=== PATIENT | male | born 1950 | race Caucasian/White ===

== ENCOUNTER 2016-03-18 10:45 | Observation (INO) | payer OTHER ==
--- NOTE | 2016-03-18 11:01 | CPEKG ---
Heart Rate: 150 RR Interval: 400 QRSD Interval: 120 QT Interval: 308 QTC Interval: 487 P [place]: 0 QRS [place]: -107 T Wave [place]: -48 EKG Severity - ABNORMAL ECG - EKG Impression: RBBB AND LPFB EKG Impression: atrial flutter 2-1 block Electronically Signed By: Adán Montiel 18-Mar-2016 11:13:35
[2016-03-18] MEDS ORDERED: DILTIAZEM 25 MG/5 ML VIAL IVP ONE ×3 (11:22→11:49)
--- NOTE | 2016-03-18 11:25 | EDPHY ---
H & P Stated Complaint: irregular hr/sob fatigue Time Seen by Provider: 03/18/16 11:08 HPI/ROS: CHIEF COMPLAINT: Lightheadedness HISTORY OF PRESENT ILLNESS: Patient is a 65-year-old man with a history of atrial fibrillation/flutter status post ablation in 2008 reports to the emergency department complaining of lightheadedness and easy fatigability that began yesterday afternoon. He has not had any recent fevers or illnesses. No nausea vomiting. No chest pain. He became easily winded while walking the dog but otherwise denies shortness of breath. His heart rate is 150 consistently. He does notice mild palpitations. REVIEW OF SYSTEMS: Constitutional: denies: chills, fever, recent illness, recent injury EENTM: denies: blurred vision, double vision, nose congestion Respiratory: See HPI Cardiac: See HPI Gastrointestinal/Abdominal: denies: abdominal pain, diarrhea, nausea, vomiting, blood streaked stools Genitourinary: denies: dysuria, frequency, hematuria, pain Musculoskeletal: denies: joint pain, muscle pain Skin: denies: lesions, rash, jaundice, bruising Neurological: denies: headache, numbness, paresthesia, tingling, dizziness, weakness Hematologic/Lymphatic: denies: blood clots, easy bleeding, easy bruising Immunologic/allergic: denies: HIV/AIDS, transplant EXAM: GENERAL: Well-appearing, well-nourished and in no acute distress. HEAD: Atraumatic, normocephalic. EYES: Pupils equal round and reactive to light, extraocular movements intact, sclera anicteric, conjunctiva are normal. ENT: TMs normal, nares patent, oropharynx clear without exudates. Moist mucous membranes. NECK: Normal range of motion, supple without lymphadenopathy or JVD. LUNGS: Breath sounds clear to auscultation bilaterally and equal. No wheezes rales or rhonchi. HEART: Tachycardia very regular. ABDOMEN: Soft, nontender, normoactive bowel sounds. No guarding, no rebound. No masses appreciated. BACK: No CVA tenderness, no spinal tenderness, step-offs or deformities EXTREMITIES: Normal range of motion, no pitting or edema. No clubbing or cyanosis. NEUROLOGICAL: Cranial nerves II through XII grossly intact. Normal speech, normal gait. 5/5 strength, normal movement in all extremities, normal sensation PSYCH: Normal mood, normal affect. SKIN: Warm, dry, normal turgor, no visible rashes or lesions. Source: Patient Exam Limitations: No limitations - Personal History Current Tetanus/Diphtheria Vaccine: Yes - Medical/Surgical History Hx Asthma: No Hx Chronic Respiratory Disease: No Hx Diabetes: No Hx Cardiac Disease: Yes Hx Renal Disease: No Hx Cirrhosis: No Hx Alcoholism: No Hx HIV/AIDS: No Hx Splenectomy or Spleen Trauma: No Other PMH: Afib-ablation, GERD - Family History Significant Family History: No pertinent family hx - Social History Smoking Status: Former smoker Alcohol Use: Sober Drug Use: None Constitutional: Initial Vital Signs Temperature (C) 36.5 C 03/18/16 10:50 Heart Rate 156 H 03/18/16 10:50 Respiratory Rate 22 H 03/18/16 10:50 Blood Pressure 94/84 H 03/18/16 10:50 O2 Sat (%) 96 03/18/16 10:50 O2 Delivery Mode Room Air Allergies/Adverse Reactions: tetanus and diphtheria toxoids [tetanus & diphtheria toxoids] Allergy (Verified 03/18/16 10:49) Home Medications: Medication Instructions Recorded Atorvastatin Calcium [Lipitor 20 20 mg PO DAILY 12/18/14 mg (*)] Esomeprazole Mag Trihydrate 40 mg PO DAILY 12/18/14 [Nexium] Multivitamins [Multivitamin (*)] 1 tab PO DAILY 12/18/14 [place]-3 Fatty Acids [Fish Oil 1000 1,000 mg PO DAILY 12/18/14 mg (*)] Aspirin EC [Aspirin EC 81 mg (*)] 81 mg PO DAILY 01/06/15 Ibuprofen [Motrin (*)] 200 mg PO DAILY PRN 01/06/15 Aspirin EC [Aspirin EC 325 mg (*)] 325 mg PO DAILY #0 tab 01/12/15 Medical Decision Making - Diagnostics EKG Interpretation: An EKG obtained and was read and documented in trace view. Please see trace view for full reading and report. Atrial flutter with a 2-1 block, ED Course/Re-evaluation: After 20 mg of diltiazem IV the patient is still in atrial flutter/fibrillation but at a rate of 80. I will treat him with an oral dose. 1:20 p.m. the patient's heart rate is return to 150. He is a troponin bump. The oral diltiazem does not seem to be working. Will admit him to the hospital service and consult Cardiology. He is not currently on any anticoagulation medication or beta-blockers or calcium channel blockers. 1:30 p.m. I discussed the case with Dr. Isauro Tan who requests admit to the medical service. 1:33 p.m. I discussed the case with Pratima who will admit to Dr. Ernandez. Differential Diagnosis: Partial list of the Differential diagnosis considered include but were not limited to; atrial flutter, atrial fibrillation, SVT, acute coronary disease and although unlikely based on the history and physical exam, I also considered dehydration, electrolyte abnormality, PE. - Data Points Laboratory Results: Laboratory Results 03/18/16 11:05 03/18/16 11:05 03/18/16 11:05 WBC 14.24 H 10^3/uL (3.80-9.50) RBC 4.94 10^6/uL (4.40-6.38) Hgb 16.0 g/dL (13.7-17.5) Hct 45.9 % (40.0-51.0) MCV 92.9 fL (81.5-99.8) MCH 32.4 pg (27.9-34.1) MCHC 34.9 g/dL (32.4-36.7) RDW 12.6 % (11.5-15.2) Plt Count 255 10^3/uL (150-400) MPV 10.8 fL (8.7-11.7) Neut % (Auto) 62.6 % (39.3-74.2) Lymph % (Auto) 25.1 % (15.0-45.0) [place] % (Auto) 8.3 % (4.5-13.0) Eos % (Auto) 2.8 % (0.6-7.6) Baso % (Auto) 0.6 % (0.3-1.7) Nucleat RBC Rel Count 0.0 % (0.0-0.2) Absolute Neuts (auto) 8.92 H 10^3/uL (1.70-6.50) Absolute Lymphs (auto) 3.58 H 10^3/uL (1.00-3.00) Absolute Monos (auto) 1.18 H 10^3/uL (0.30-0.80) Absolute Eos (auto) 0.40 10^3/uL (0.03-0.40) Absolute Basos (auto) 0.08 10^3/uL (0.02-0.10) Absolute Nucleated RBC 0.00 10^3/uL (0-0.01) Immature Gran % 0.6 % (0.0-1.1) Immature Gran # 0.08 10^3/uL (0.00-0.10) Sodium 141 mEq/L (134-144) Potassium 4.4 mEq/L (3.5-5.2) Chloride 107 mEq/L (97-110) Carbon Dioxide 22 mEq/l (22-31) Anion Gap 12 mEq/L (8-16) BUN 15 mg/dL (7-23) Creatinine 0.9 mg/dL (0.7-1.3) Estimated GFR > 60 Glucose 99 mg/dL (70-100) Calcium 9.2 mg/dL (8.5-10.4) Troponin I 0.065 H ng/mL (0-0.034) Medications Given: Discontinued Medications Diltiazem HCl (Cardizem 25 Mg/5 Ml Vial) 10 mg IVP EDNOW ONE Stop: 03/18/16 11:23 Last Admin: 03/18/16 11:41 Dose: 10 mg Diltiazem HCl (Cardizem 25 Mg/5 Ml Vial) 10 mg IVP EDNOW ONE Stop: 03/18/16 11:50 Last Admin: 03/18/16 11:55 Dose: 10 mg Diltiazem HCl (Cardizem Immediate Release) 60 mg PO EDNOW ONE Stop: 03/18/16 12:24 Last Admin: 03/18/16 12:50 Dose: 60 mg Diltiazem HCl 125 mg/ Dextrose 150 mls @ 0 mls/hr IV EDNOW ONE; As Directed PRN Reason: Protocol Stop: 03/18/16 13:51 Last Admin: 03/18/16 14:42 Dose: 150 mls Departure - Departure Disposition: [facility] Acute Clinical Impression: Atrial flutter Qualifiers: Atrial flutter type: typical Qualifier Code: (I48.3) Typical atrial flutter Condition: Fair
--- NOTE | 2016-03-18 11:46 | DX ---
Chest, PA and Lateral History: Dyspnea, exercise intolerance Comparison: April 11, 2009 Findings: Lung volumes are again moderately prominent and there is chronic or recurrent bronchial wal l thickening. Lungs are clear, without infiltrate or consolidation. Heart and pulmonary vascularity a re normal. There is no adenopathy or mass lesion. There is no pleural effusion or pneumothorax. There is chronic degenerative change in the midthoracic spine. There are interval, but solidly healed, rig ht anterior lateral 6, 7 and 8 rib fractures. EKG leads overlie the chest. Impression: COPD. Possible superimposed active airways disease.
[2016-03-18 11:59] LABS: % IMMATURE GRANULYOCYTES 0.6 % (0.0-1.1); ABSOLUTE IMMATURE GRANULOCYTES 0.08 10^3/uL (0.00-0.10); ADD DIFF? NO; ADD MORPH? NO; ADD SCAN? NO; ATYPICAL LYMPHOCYTE FLAG 10 (0-99); FRAGMENT RBC FLAG 0 (0-99); HEMATOCRIT 45.9 % (40.0-51.0); LEFT SHIFT FLG 0 (0-99); LIPEMIA HEMOLYSIS FLAG 90 (0-99); MEAN CELL HEMOGLOBIN 32.4 pg (27.9-34.1); MEAN CELL HEMOGLOBIN CONCENTR. 34.9 g/dL (32.4-36.7); MEAN CELL VOLUME 92.9 fL (81.5-99.8); MEAN PLATELET VOLUME 10.8 fL (8.7-11.7); PLATELET CLUMPS FLAG 20 (0-99); PLATELET COUNT 255 10^3/uL (150-400); RED BLOOD CELL COUNT 4.94 10^6/uL (4.40-6.38); RED CELL DISTRIBUTION WIDTH 12.6 % (11.5-15.2)
[2016-03-18 12:03] LABS: ANION GAP 12 mEq/L (8-16); CALCIUM 9.2 mg/dL (8.5-10.4); CARBON DIOXIDE 22 mEq/l (22-31); CHLORIDE 107 mEq/L (97-110); CREATININE 0.9 mg/dL (0.7-1.3); GLOMERULAR FILTRATION RATE > 60; GLUCOSE 99 mg/dL (70-100); POTASSIUM 4.4 mEq/L (3.5-5.2); SODIUM 141 mEq/L (134-144)
[2016-03-18] MEDS ORDERED: DILTIAZEM 60 MG TAB PO ONE (12:23)
[2016-03-18 12:26] LABS: TROPONIN I 0.065 ng/mL (0-0.034)
[2016-03-18] MEDS ORDERED: DILTIAZEM 125 MG in D5W 125 ML IV ONE (13:50)
[2016-03-18] MEDS ORDERED: ONDANSETRON DISINTEGRATING 4 MG TAB PO PRN (15:09)
[2016-03-18] MEDS ORDERED: ONDANSETRON 4 MG/2 ML VIAL IVP PRN (15:09)
[2016-03-18] MEDS ORDERED: ACETAMINOPHEN 325 MG TAB PO PRN (15:09)
[2016-03-18] MEDS ORDERED: DILTIAZEM 125 MG in D5W 125 ML IV SCH (16:00)
[2016-03-18] MEDS: DIGOXIN 500 MCG/2 ML AMP IVP SCH ×2 (16:41→23:23)
[2016-03-18] MEDS: ASPIRIN EC 81 MG TAB PO SCH (16:41)
--- NOTE | 2016-03-18 16:45 | GHP ---
[f rep st] HISTORY AND PHYSICAL DATE OF ADMISSION: 03/18/2016 DATE OF EVALUATION: 03/18/2016 CHIEF COMPLAINT: Dyspnea and lightheadedness. HISTORY OF PRESENT ILLNESS: The patient is a 65-year-old male with a past medical history of dyslipidemia and GERD, who presented to the Emergency Department due to fatigue and shortness of breath on exertion. He reports onset probably within the past couple of nights. He noted that minimal exertion would cause him to be winded. Typically, he is very active and this was a new symptom for him. He denies any presyncope, syncope, chest pains, PND , orthopnea, or peripheral edema. He has not noted any recent illness. He denies any diarrhea or dysuria or fever. REVIEW OF SYSTEMS: As per HPI. A complete 10-point review of systems was obtained and is negative except for what is dictated. PAST MEDICAL HISTORY: 1. 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 2. Dyslipidemia. 3. GERD. FAMILY HISTORY: Daughter had an [place] in her 20s. She is a patient of [facility]. OUTPATIENT MEDICATIONS: These include Lipitor 21 mg p.o. daily, esomeprazole, ibuprofen 600 mg p.o. daily, psyllium, and fish oil. ALLERGIES: Tetanus and diphtheria toxoids. SOCIAL HISTORY: The patient is . His Ashwini is present in the room. He reports at least 2 drinks nightly. He owns a bar. He is a former smoker. PHYSICAL EXAM: VITAL SIGNS: BP of 106/78, heart rate of 150, respirations 18, O2 saturation 95% on room air, temperature of 97.5 degrees Fahrenheit. GENERAL : He is a very pleasant male in no apparent distress. HEENT: Eyes are PERRL. HEART: Tachycardia with no rubs, gallops or murmurs auscultated. LUNGS: Clear to auscultation bilaterally. ABDOMEN: Soft. : No Chambers present. SKIN: Warm and dry. MUSCULOSKELETAL: No obvious joint deformity. PSYCH: Normal mood and affect for given situation. NEURO: Awake, alert, and oriented x3. LABORATORY DATA: CBC with WBC 14.24, hemoglobin 16, hematocrit 45.9, platelet count of 255. BMP with sodium 141, potassium 4.4, chloride 107, CO2 22, BUN 15, creatinine 0.9 , glucose of 99. Troponin 0.065. A 12-lead ECG personally interpreted demonstrates atrial flutter with a right bundle branch block and 2:1 conduction. Chest x-ray shows COPD. 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 He also has a family history of early coronary disease affecting his daughter. 1. Atrial flutter. He is in a 2:1 conduction. Our goal will be for rate control at this point. He has been started on a diltiazem drip. We will also add boluses of digoxin. If he does not convert, we will plan for a transesophageal echocardiography guided cardioversion. He will be kept NPO for that purpose in the morning. He carries a [id number] score of 0. We will keep him on aspirin currently. However, should he require direct current cardioversion, we will start him on full anticoagulation with Coumadin versus a novel agent. 2. Mildly elevated troponin. We will plan to obtain serial cardiac enzymes. This is likely due to strain from RVR. However, we will consider outpatient versus inpatient risk stratification. 3. Dyslipidemia. His atorvastatin will be continued. CODE STATUS: The patient is a full code. DISPOSITION: The patient will be admitted to observation status. Should he require further testing, or his troponin become significantly elevated, he will require inpatient status for further testing and treatment. /[id number]/MODL MTDD
[2016-03-18] MEDS ORDERED: OMEGA-3 FATTY ACIDS 1,000 MG CAP PO SCH (18:00)
[2016-03-19 05:33] LABS: % IMMATURE GRANULYOCYTES 0.6 % (0.0-1.1); ABSOLUTE IMMATURE GRANULOCYTES 0.06 10^3/uL (0.00-0.10); ADD DIFF? NO; ADD MORPH? NO; ADD SCAN? NO; ATYPICAL LYMPHOCYTE FLAG 10 (0-99); FRAGMENT RBC FLAG 0 (0-99); HEMATOCRIT 42.1 % (40.0-51.0); HEMOGLOBIN 14.3 g/dL (13.7-17.5); LEFT SHIFT FLG 0 (0-99); LIPEMIA HEMOLYSIS FLAG 90 (0-99); MEAN CELL HEMOGLOBIN 32.1 pg (27.9-34.1); MEAN CELL VOLUME 94.6 fL (81.5-99.8); MEAN PLATELET VOLUME 10.9 fL (8.7-11.7); PLATELET CLUMPS FLAG 0 (0-99); PLATELET COUNT 225 10^3/uL (150-400); RED BLOOD CELL COUNT 4.45 10^6/uL (4.40-6.38); RED CELL DISTRIBUTION WIDTH 12.7 % (11.5-15.2)
[2016-03-19 06:05] LABS: ANION GAP 11 mEq/L (8-16); CALCIUM 8.4 mg/dL (8.5-10.4); CARBON DIOXIDE 20 mEq/l (22-31); CHLORIDE 109 mEq/L (97-110); CREATININE 0.8 mg/dL (0.7-1.3); GLOMERULAR FILTRATION RATE > 60; GLUCOSE 104 mg/dL (70-100); POTASSIUM 4.3 mEq/L (3.5-5.2); SODIUM 140 mEq/L (134-144)
--- NOTE | 2016-03-19 08:34 | CPEKG ---
Heart Rate: 67 RR Interval: 896 P-R Interval: 192 QRSD Interval: 116 QT Interval: 456 QTC Interval: 482 P [place]: 59 QRS [place]: 0 T Wave [place]: 4 EKG Severity - ABNORMAL ECG - EKG Impression: SINUS RHYTHM EKG Impression: INCOMPLETE RIGHT BUNDLE BRANCH BLOCK Electronically Signed By: Lucia Amezcua 19-Mar-2016 16:49:38
[2016-03-19] MEDS ORDERED: ATORVASTATIN CALCIUM 20 MG TAB PO SCH (09:00)
[2016-03-19] MEDS ORDERED: MULTIVITAMINS 1 EACH TAB PO SCH (09:00)
[2016-03-19] MEDS ORDERED: ENOXAPARIN 40 MG/0.4 ML SYR SC SCH (09:00)
[2016-03-19] MEDS ORDERED: PSYLLIUM METAMUCIL 1 PKT PO SCH (09:00)
[2016-03-19] MEDS ORDERED: PANTOPRAZOLE SODIUM 40 MG TAB PO SCH (09:00)
[2016-03-19] MEDS ORDERED: PSYLLIUM HUSK PO SCH (09:00)
[2016-03-19] MEDS ORDERED: NON-FORMULARY NEW DRUG (Esomeprazole Mag Trihydrate [Nexium] 40 MG) PO SCH (09:00)
--- NOTE | 2016-03-19 10:07 | ECHO ---
[id number] [id number] + + [address] : : [place] [address] : : [phone] + + Adult Echocardiographic Report + ----+ :Name: JESSICA BLISS Nanda Date: 03/19/2016 08:01 AM : : Hospital Admission Number: [id number] Location: 218: :: 1950 Gender: Male Height: 73 in : :Age: 65 yrs Race: WH Weight: 225 lb : :Reason For Study: Atrial flutter : : BSA: 2.3 meters2 : + ----+ MMode/2D Measurements & Calculations IVSd: 0.73 cm LVIDd: 4.9 cm EDV(Teich): Ao root diam: LVPWd: 0.79 cm 114.7 ml 4.2 cm LA dimension: 3.8 cm LVLd ap4: 7.8 cm SV(MOD-sp4): EDV(MOD-sp4): 54.0 ml 77.0 ml LVLs ap4: 6.6 cm ESV(MOD-sp4): 23.0 ml EF(MOD-sp4): 70.1 % Normal Measurement Values: + + :LVIDd (3.5-5.7cm) IVSd (0.6-1.1cm) LVPWd (0.6-1.1cm) Aortic Root (2.0-3.7cm)Left Atrium (1.5-4.0cm): :LV Vol(d) (76-115ml) LV Vol(s) (29-48ml) Ejec Fraction (50-65%)PV Mynor (0.6- 1.2m/s) TV Mynor (0.4-1.0m/s) : :MV E Mynor (0.8-1.0m/s)MV A Mynor (0.3-1.0m/s)LVOT Mynor (0.7-1.2m/s) Asc Ao Mynor ( 0.9-1.8m/s) : + + Doppler Measurements & Calculations MV E max mynor: 109.1 cm/sec Ao V2 max: 112.7 cm/sec MV A max mynor: 89.3 cm/sec Ao max P.1 mmHg MV E/A: 1.2 Left Ventricle The left ventricle is normal in size. There is normal left ventricular wall thickness. Left ventricular systolic function is normal. Ejection Fraction = 65-70%. There is Doppler evidence for diastolic dysfunction. No regional wall motion abnormalities noted. Right Ventricle The right ventricle is normal in size and function. Atria The left atrial size is normal. Right atrial size is normal. The interatrial septum is intact with no evidence for an atrial septal defect. Mitral Valve The mitral valve is normal in structure and function. There is no evidence of mitral valve prolapse. There is no mitral valve stenosis. There is trace mitral regurgitation. Tricuspid Valve Normal tricuspid valve. No tricuspid regurgitation. Aortic Valve The aortic valve is trileaflet. The aortic valve opens well. There is no aortic stenosis. There is no aortic insufficiency. Pulmonic Valve The pulmonic valve is normal in structure and function. There is no pulmonic valvular regurgitation. Great Vessels The aortic root is normal size. Pericardium/Pleural There is no pericardial effusion. Conclusion A complete two-dimensional transthoracic echocardiogram was performed (2D, M-mode, Doppler and color flow Doppler). Left ventricular systolic function is normal. Ejection Fraction = 65-70%. There is Doppler evidence for diastolic dysfunction. There is trace mitral regurgitation. Final Reading Physician: Mervat Higginbotham signed on 03/19/2016 10:05 AM Ordering Physician: Pratima Lou Referring Physician: MD Nuno Powell Dr Performed By: Katelin Houston, CS
[2016-03-19] MEDS: ASPIRIN EC 81 MG TAB PO SCH (11:52)
--- NOTE | 2016-03-19 11:57 | GDS ---
[f rep st] DISCHARGE SUMMARY NEW AND ACUTE DIAGNOSES: 1. Acute supraventricular tachycardia, atrial flutter, converted. 2. Weakness and dizziness without chest pain, resolved. 3. Dyslipidemia. 4. Gastroesophageal reflux disease. CONSULTATION: Cardiology. PROCEDURES: Echocardiogram showing an ejection fraction of 65-70% with evidence for diastolic dysfun ction and a trace of mitral regurgitation. HOSPITAL COURSE: A 65-year-old male with a known history of SVT x30 years status post an ablation in 2008 and had been symptom-free since 2008. He noted on the day of admission weakness and rapid hear tbeat, which he was unable to resolve by Valsalva maneuvers. He presented in SVT in an accelerated r ate, atrial flutter. He was started on a diltiazem drip and given a bolus of digoxin. He spontaneou sly converted. Following conversion, it is noted that his DEDRICK score is 0 and thus he will be continued on aspirin a s anticoagulation. He had a mild elevation of troponin, but was chest pain-free. The troponin eleva tion was felt secondary to cardiac strain during the SVT. DISCHARGE MEDICATIONS: Ibuprofen 600 mg q.8 hours p.r.n. pain, Metamucil, Nexium 40 mg a day, omega- 3 fatty acids 1000 mg daily, multivitamin daily, Lipitor 20 mg daily, ASA EC 81 mg daily. PLAN: The gentleman is discharged to home in good condition on a cardiac diet. He will be seen by Efrem Murillo in followup for further evaluation of this now recurrent SVT. A 30-day Holter monito r is considered. He will also see Dr. Kvng Powell, his PCP, on a p.r.n. basis. TIME SPENT: This discharge required greater than 35 minutes, greater than 50% to counseling center director and coordin ate care. /[id number]/MODL
[2016-03-19 12:02] VITALS: BP 129/69; PULSE 71; RESP 14; TEMP 97.5; O2SAT 97
== END 2016-03-19 13:32 | disposition home or self-care (01) ==
LOC: F2W 15:10
PROVIDERS: ADMIT Hospitalist; ATTEND Hospitalist
PROC: 5A2204Z Restoration of Cardiac Rhythm, Single (ICD-10-PCS; principal; 2016-03-18)
DX: I47.1 Supraventricular tachycardia (principal); I48.3 Typical atrial flutter; E78.5 Hyperlipidemia, unspecified; K21.9 Gastro-esophageal reflux disease without esophagitis; Z87.891 Personal history of nicotine dependence
CPT/HCPCS: 71020; 93005; 93306; G0378; 96374; J1160; J1650

== ENCOUNTER 2016-07-07 06:40 | Emergency (ER) | payer OTHER, MEDICARE ==
--- NOTE | 2016-07-07 06:49 | CPEKG ---
Heart Rate: 142 RR Interval: 423 QRSD Interval: 114 QT Interval: 344 QTC Interval: 529 P [place]: 0 QRS [place]: -71 T Wave [place]: -37 EKG Severity - ABNORMAL ECG - EKG Impression: SINUS TACHYCARDIA EKG Impression: IRBBB AND LPFB Electronically Signed By: Donal Forrester 07-Jul-2016 15:14:51
[2016-07-07] MEDS ORDERED: NS 500 ML IV ONE (07:00)
[2016-07-07] MEDS ORDERED: ASPIRIN 81 MG CHEWABLE TAB PO ONE (07:00)
[2016-07-07] MEDS ORDERED: DILTIAZEM 125 MG in D5W 125 ML IV ONE ×2 (07:00→10:00)
[2016-07-07 07:06] LABS: % IMMATURE GRANULYOCYTES 0.4 % (0.0-1.1); ABSOLUTE IMMATURE GRANULOCYTES 0.05 10^3/uL (0.00-0.10); ADD DIFF? NO; ADD MORPH? NO; ADD SCAN? NO; ATYPICAL LYMPHOCYTE FLAG 10 (0-99); FRAGMENT RBC FLAG 0 (0-99); HEMATOCRIT 50.4 % (40.0-51.0); HEMOGLOBIN 17.4 g/dL (13.7-17.5); LEFT SHIFT FLG 0 (0-99); LIPEMIA HEMOLYSIS FLAG 90 (0-99); MEAN CELL HEMOGLOBIN 31.9 pg (27.9-34.1); MEAN CELL HEMOGLOBIN CONCENTR. 34.5 g/dL (32.4-36.7); MEAN CELL VOLUME 92.3 fL (81.5-99.8); MEAN PLATELET VOLUME 10.6 fL (8.7-11.7); PLATELET CLUMPS FLAG 0 (0-99); PLATELET COUNT 269 10^3/uL (150-400); RED BLOOD CELL COUNT 5.46 10^6/uL (4.40-6.38); RED CELL DISTRIBUTION WIDTH 12.6 % (11.5-15.2)
--- NOTE | 2016-07-07 07:06 | EDPHY ---
H & P Time Seen by Provider: 07/07/16 06:55 HPI/ROS: HPI Palpitations. 66-year-old male by private vehicle. He has a history of intermittent SVT, atrial flutter. His magazine designer is Dr. Pickett. He reports onset of palpitations last night at 10:00 p.m. while going to bed. He thought it would go away while he slept. He woke up with the palpitations this morning. He gives a vague history of feeling these palpitations intermittently over the last several days prior to this. He denies any chest pain. No shortness of breath. He is not currently on any beta blockers, calcium channel blockers or other rate control medications. He is not anticoagulated. He was admitted for a similar episode in early March. This was treated with diltiazem and digoxin. He conferred with these medications. ROS: Constitutional: No fever, no chills. No weakness. Eyes: No discharge. No changes in vision. ENT: No sore throat. No nasal congestion or rhinorrhea. Respiratory: No cough. No shortness of breath. Cardiac: No chest pain, as above. Gastrointestinal: No abdominal pain, no vomiting, no diarrhea. Genitourinary: No hematuria. No dysuria or increased frequency with urination. Musculoskeletal: No back pain. No neck pain. No myalgias or arthralgias. Skin: No rashes. Neurological: No headache. No focal weakness or altered sensation. Past medical history: SVT with history of or dramatic ablation, GERD, dyslipidemia. As above. Social history: He is . Former smoker. 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 Physical Exam: General Appearance: Alert, no distress. This patient is responding to questions appropriately and in full sentences. This patient appears well- hydrated and well-nourished. Eyes: Pupils equal and round no pallor or injection. No lid edema, erythema or injection. Respiratory: There are no retractions, lungs are clear to auscultation with good air movement bilaterally. Cardiovascular: Tachycardia. No murmur appreciated. Gastrointestinal: Abdomen is soft and nontender, no masses, bowel sounds normal. No focal tenderness at McBurney's point. No Mathews sign. Neurological: Motor sensory function is grossly intact. Cranial nerves are normal. Gait is normal. Skin: Warm and dry, no rashes. Musculoskeletal: Neck is supple and nontender. Extremities are symmetrical. All joints range without pain or impingement. Psychiatric: No agitation. No depression. Database: EKG: EKG time is 6:46 a.m.; EKG shows a atrial flutter with ventricular rate of 142, probable 2-1 av block. Right bundle branch block and left posterior fascicular block noted. No ST, T-wave changes indicative of ischemic or injury pattern. Interpreted by me. EKG 2. Time 8:29 a.m.: EKG shows atrial flutter with variable block, rate average of 100. Otherwise unchanged from above. Interpreted by me. Imaging: Chest x-ray AP portable; the cardiac mediastinal silhouette is unremarkable. No evidence of infiltrate or pneumothorax. No acute cardiopulmonary disease process noted. Interpreted by me. Procedures: Emergency department course: IV placed. He was placed on a monitor. He was started on oxygen at 2 L by nasal cannula. He will be given 500 cc of IV normal saline. Plan at this time is rate controlled. He will be started on a diltiazem drip at 2.5 milligrams/ minute up to 50 mg total, rate less than 100 or hypotension. 8:30 a.m., patient re-evaluated. Rate well controlled in the mid 90s at this time. Patient switched to steady state drip at 15 milligrams/hour of IV diltiazem. Atrial flutter with variable block on the monitor. Plan for admission discussed. Results of laboratory work discussed. Patient in agreement. 8:35 a.m., spoke with Dr. Velasco, hospitalist. Patient accepted for admission to the hospitalist service plan for echocardiogram assisted cardioversion. Echocardiogram has been ordered. Patient's remaining emergency department course under my care uneventful. He was admitted to telemetry in stable and improved condition. Differential Diagnosis: The differential diagnosis on this patient includes but is not limited to atrial flutter with 2-1 av block, SVT. Ventricular tachycardia, WPW, acute coronary syndrome, PE unlikely. This represents a partial list of diagnoses considered. These considerations are based on history, physical exam, past history, reassessment and diagnostic testing. Smoking Status: Former smoker Constitutional: Initial Vital Signs Temperature (C) 36.4 C 07/07/16 06:47 Heart Rate 145 H 07/07/16 06:47 Respiratory Rate 20 05/26/17 06:47 Blood Pressure 132/88 H 07/07/16 06:47 O2 Sat (%) 99 07/07/16 06:47 O2 Delivery Mode Room Air O2 (L/minute) 2 Allergies/Adverse Reactions: tetanus and diphtheria toxoids [tetanus & diphtheria toxoids] Allergy (Verified 03/18/16 10:49) Home Medications: Medication Instructions Recorded Atorvastatin Calcium [Lipitor 20 20 mg PO DAILY 12/18/14 mg (*)] Esomeprazole Mag Trihydrate 40 mg PO DAILY 12/18/14 [Nexium] Multivitamins [Multivitamin (*)] 1 tab PO DAILY 12/18/14 [place]-3 Fatty Acids [Fish Oil 1000 1,000 mg PO DAILY18 12/18/14 mg (*)] Herbals/Supplements -Info Only 1 ea PO DAILY 03/18/16 Psyllium Husk [Metamucil] 1.56 gm PO DAILY 03/18/16 Aspirin EC [Aspirin EC 81 mg (*)] 81 mg PO DAILY #100 tab 03/19/16 Apixaban [Eliquis] 5 mg PO BID #60 tab 07/07/16 Diltiazem Cd [Cardizem ER Q24hr] 180 mg PO DAILY #30 cap 07/07/16 Medical Decision Making - Data Points Laboratory Results: Laboratory Results 07/07/16 06:50 07/07/16 06:50 Medications Given: Discontinued Medications Apixaban (Eliquis) 5 mg PO BID [facility] Stop: 01/03/17 11:59 Last Admin: 07/07/16 13:30 Dose: 5 mg Aspirin (Aspirin) 324 mg PO EDNOW ONE Stop: 07/07/16 07:01 Last Admin: 07/07/16 07:24 Dose: 324 mg Aspirin Buffered (Aspirin Ec) 81 mg PO DAILY [facility] Stop: 01/03/17 11:59 Last Admin: 07/07/16 13:30 Dose: 81 mg Atorvastatin Calcium (Lipitor) 20 mg PO DAILY [facility] Stop: 01/03/17 11:14 Last Admin: 07/07/16 12:15 Dose: 20 mg Diltiazem HCl (Cardizem Er Q24hr) 180 mg PO DAILY [facility] Stop: 01/03/17 11:59 Last Admin: 07/07/16 13:00 Dose: 180 mg Diltiazem HCl 125 mg/ Dextrose 125 mls @ 0 mls/hr IV EDNOW ONE; As Directed PRN Reason: Protocol Stop: 07/07/16 07:01 Last Admin: 07/07/16 07:41 Dose: 125 mls Sodium Chloride (Ns) 500 mls @ 0 mls/hr IV ONCE ONE PRN Reason: As Directed Stop: 07/07/16 07:01 Last Admin: 07/07/16 07:24 Dose: 500 mls Diltiazem HCl 125 mg/ Dextrose 125 mls @ 0 mls/hr IV EDNOW ONE; As Directed PRN Reason: Protocol Stop: 07/07/16 10:01 Last Admin: 07/07/16 09:41 Dose: 125 mls Verapamil HCl (Verapamil Hcl) 5 mg IVP ONCE ONE Stop: 07/07/16 11:50 Last Admin: 07/07/16 12:15 Dose: 5 mg Departure - Departure Disposition: Home, Routine, Self-Care Clinical Impression: SVT (supraventricular tachycardia), Atrial flutter Condition: Good Additional Instructions: Take the Eliquis twice daily for stroke prevention and the Diltiazem once daily to hopefully prevent recurrent rapid flutter. If you feel dizzy or lightheaded , hold the Diltiazem. Follow up with Dr. Pickett next week. Consider cutting back on alcohol as this may be provoking the arrhythmia. Referrals: Yves Pickett MD [Medical Doctor] - Reji Powell MD [Primary Care Provider] - As per Instructions Prescriptions: Apixaban [Eliquis] 5 mg PO BID #60 tab Diltiazem Cd [Cardizem ER Q24hr] 180 mg PO DAILY #30 cap
[2016-07-07 07:13] LABS: ANION GAP 16 mEq/L (8-16); CALCIUM 9.5 mg/dL (8.5-10.4); CARBON DIOXIDE 21 mEq/l (22-31); CHLORIDE 106 mEq/L (97-110); CREATININE 0.7 mg/dL (0.7-1.3); GLOMERULAR FILTRATION RATE > 60; GLUCOSE 122 mg/dL (70-100); POTASSIUM 4.4 mEq/L (3.5-5.2); SODIUM 143 mEq/L (134-144)
[2016-07-07 07:19] LABS: APTT 29.2 SEC (23.0-38.0); INR 0.97 (0.83-1.16); PROTIME(PATIENT) 12.8 SEC (12.0-15.0)
[2016-07-07 07:25] LABS: CREATINE KINASE-MB FRACTION 2.64 ng/mL (0-3.19); TROPONIN I < 0.012 ng/mL (0-0.034)
--- NOTE | 2016-07-07 08:50 | CPEKG ---
Heart Rate: 100 RR Interval: 600 QRSD Interval: 116 QT Interval: 448 QTC Interval: 578 QRS [place]: 0 T Wave [place]: 13 EKG Severity - ABNORMAL ECG - EKG Impression: A-FLUTTER W/ VARIED AV BLOCK, A-RATE 288 EKG Impression: IRBBB AND LPFB EKG Impression: INFERIOR INFARCT, AGE INDETERMINATE Electronically Signed By: Donal Forrester 07-Jul-2016 15:14:51
[2016-07-07] MEDS ORDERED: ONDANSETRON 4 MG/2 ML VIAL IVP PRN (11:05)
[2016-07-07] MEDS ORDERED: ACETAMINOPHEN 325 MG TAB PO PRN (11:05)
[2016-07-07] MEDS ORDERED: ONDANSETRON DISINTEGRATING 4 MG TAB PO PRN (11:05)
[2016-07-07] MEDS ORDERED: DILTIAZEM 125 MG in D5W 125 ML IV SCH (11:15)
[2016-07-07] MEDS ORDERED: ATORVASTATIN CALCIUM 20 MG TAB PO SCH (11:15)
[2016-07-07] MEDS ORDERED: NON-FORMULARY NEW DRUG (Esomeprazole Mag Trihydrate [Nexium] 40 MG) PO SCH (11:15)
--- NOTE | 2016-07-07 11:19 | PDGENHP ---
History and Physical - Chief Complaint heart palpitations - History of Present Illness 66 yo male with h/o paroxysmal atrial flutter presents to the ED with palpitations. Onset was 9:45 PM last night. He denies associated chest pain, shortness of breath or lightheadedness. He went to bed, but awoke with persistent palpitations and presented to the ED. He reports drinking ~7 drinks in an evening up to 4 times per week. He feels this is normal intake of alcohol. He was previously admitted with rapid a flutter and underwent cardioversion with successful conversion to normal sinus rhythm. He is followed by Dr. Pickett. He also has a h/o SVT and underwent ablation in ?2008. He previously had a Chads-vasc score of 0 and was managed on daily aspirin. He was not on any agents for rate control as an outpatient. In the ED, he was started on a diltiazem drip with improved rate control. He then received IV Verapamil and converted to NSR. History Information - Allergies/Home Medication List Allergies/Adverse Reactions: tetanus and diphtheria toxoids [tetanus & diphtheria toxoids] Allergy (Verified 03/18/16 10:49) Home Medications: Atorvastatin Calcium [Lipitor 20 mg (*)] 20 mg PO DAILY 12/18/14 [Last Taken ] Esomeprazole Mag Trihydrate [Nexium] 40 mg PO DAILY 12/18/14 [Last Taken ] Multivitamins [Multivitamin (*)] 1 tab PO DAILY 12/18/14 [Last Taken 07/06/16] [place]-3 Fatty Acids [Fish Oil 1000 mg (*)] 1,000 mg PO DAILY18 12/18/14 [Last Taken 07/06/16] Herbals/Supplements -Info Only 1 ea PO DAILY 03/18/16 [Last Taken Unknown] Psyllium Husk [Metamucil] 1.56 gm PO DAILY 03/18/16 [Last Taken 07/06/16] I have personally reviewed and updated: family history, medical history, social history, surgical history - Past Medical History atrial fibrillation, GERD, hyperlipidemia Additional medical history: h/o SVT s/p ablation - Surgical History Reports: no pertinent surgical hx - Family History Positive for: non-pertinent - Social History Smoking Status: Former smoker Alcohol Use: Heavy Drug Use: Marijuana Additional social history: . Heavy alcohol intake, up to 7 drinks per evening. Review of Systems ROS: 10pt was reviewed & negative except for what was stated in HPI & below Physical Exam Temp Pulse Resp BP Pulse Ox 36.4 C 96 16 122/76 H 95 07/07/16 06:47 07/07/16 10:09 07/07/16 10:09 07/07/16 10:09 07/07/16 10:09 Constitutional: no apparent distress Eyes: PERRL Ears, Nose, Mouth, Throat: moist mucous membranes Cardiovascular: irregularly irregular, tachycardia Respiratory: no respiratory distress, clear to auscultation Gastrointestinal: normoactive bowel sounds, soft, non-tender abdomen Skin: warm Musculoskeletal: full muscle strength Neurologic: AAOx3 Psychiatric: interacting appropriately Lab Data & Imaging Review 07/07/16 06:50 07/07/16 06:50 WBC 12.58 10^3/uL (3.80-9.50) H 07/07/16 06:50 RBC 5.46 10^6/uL (4.40-6.38) 07/07/16 06:50 Hgb 17.4 g/dL (13.7-17.5) 07/07/16 06:50 Hct 50.4 % (40.0-51.0) 07/07/16 06:50 MCV 92.3 fL (81.5-99.8) 07/07/16 06:50 MCH 31.9 pg (27.9-34.1) 07/07/16 06:50 MCHC 34.5 g/dL (32.4-36.7) 07/07/16 06:50 RDW 12.6 % (11.5-15.2) 07/07/16 06:50 Plt Count 269 10^3/uL (150-400) 07/07/16 06:50 MPV 10.6 fL (8.7-11.7) 07/07/16 06:50 Neut % (Auto) 65.0 % (39.3-74.2) 07/07/16 06:50 Lymph % (Auto) 23.5 % (15.0-45.0) 07/07/16 06:50 [place] % (Auto) 7.6 % (4.5-13.0) 07/07/16 06:50 Eos % (Auto) 2.5 % (0.6-7.6) 07/07/16 06:50 Baso % (Auto) 1.0 % (0.3-1.7) 07/07/16 06:50 Nucleat RBC Rel Count 0.0 % (0.0-0.2) 07/07/16 06:50 Absolute Neuts (auto) 8.18 10^3/uL (1.70-6.50) H 07/07/16 06:50 Absolute Lymphs (auto) 2.96 10^3/uL (1.00-3.00) 07/07/16 06:50 Absolute Monos (auto) 0.95 10^3/uL (0.30-0.80) H 07/07/16 06:50 Absolute Eos (auto) 0.32 10^3/uL (0.03-0.40) 07/07/16 06:50 Absolute Basos (auto) 0.12 10^3/uL (0.02-0.10) H 07/07/16 06:50 Absolute Nucleated RBC 0.00 10^3/uL (0-0.01) 07/07/16 06:50 Immature Gran % 0.4 % (0.0-1.1) 07/07/16 06:50 Immature Gran # 0.05 10^3/uL (0.00-0.10) 07/07/16 06:50 PT 12.8 SEC (12.0-15.0) 07/07/16 06:50 INR 0.97 (0.83-1.16) 07/07/16 06:50 APTT 29.2 SEC (23.0-38.0) 07/07/16 06:50 Sodium 143 mEq/L (134-144) 07/07/16 06:50 Potassium 4.4 mEq/L (3.5-5.2) 07/07/16 06:50 Chloride 106 mEq/L (97-110) 07/07/16 06:50 Carbon Dioxide 21 mEq/l (22-31) L 07/07/16 06:50 Anion Gap 16 mEq/L (8-16) 07/07/16 06:50 BUN 16 mg/dL (7-23) 07/07/16 06:50 Creatinine 0.7 mg/dL (0.7-1.3) 07/07/16 06:50 Estimated GFR > 60 07/07/16 06:50 Glucose 122 mg/dL (70-100) H 07/07/16 06:50 Calcium 9.5 mg/dL (8.5-10.4) 07/07/16 06:50 Creatine Kinase 170 IU/L (0-224) 07/07/16 06:50 CK-MB (CK-2) Fraction 2.64 ng/mL (0-3.19) 07/07/16 06:50 Troponin I < 0.012 ng/mL (0-0.034) 07/07/16 06:50 Assessment & Plan Assessment: Atrial flutter with rapid ventricular response - currently rate controlled on dilt drip. No e/o heart failure. Trop neg. Chads-vasc 1 based on age alone. Pt has been on ASA therapy as outpt. -start oral dilt and titrate off drip as able -cardiology consult to consider CV if he does not convert given symptoms -NPO after midnight -trend troponin -cont ASA H/O SVT - s/p ablation Hyperlipidemia - cont statin GERD - cont PPI Leukocytosis - query stress response. No e/o active infection. Code status - full code Dispo - obs
[2016-07-07] MEDS ORDERED: VERAPAMIL 5 MG/2 ML VIAL IVP ONE (11:49)
[2016-07-07] MEDS ORDERED: VERAPAMIL 5 MG/2 ML VIAL ONE (11:52)
[2016-07-07] MEDS ORDERED: ASPIRIN EC 81 MG TAB PO SCH (12:00)
[2016-07-07] MEDS ORDERED: DILTIAZEM CD 180 MG CAP PO SCH (12:00)
[2016-07-07] MEDS ORDERED: DILTIAZEM 30 MG TAB PO SCH (12:00)
[2016-07-07] MEDS ORDERED: APIXABAN 5 MG TAB PO SCH (12:00)
--- NOTE | 2016-07-07 12:29 | CPEKG ---
Heart Rate: 61 RR Interval: 984 P-R Interval: 212 QRSD Interval: 92 QT Interval: 432 QTC Interval: 435 P [place]: 48 QRS [place]: 31 T Wave [place]: 31 EKG Severity - NORMAL ECG - EKG Impression: SINUS RHYTHM Electronically Signed By: Donal Forrester 07-Jul-2016 15:14:51
[2016-07-07 12:49] VITALS: RESP 18
--- NOTE | 2016-07-07 12:59 | ECHO ---
[id number] + + [address] : : [place] [address] : : [phone] + + Adult Echocardiographic Report + ---+ :Name: JESSICA BLISS Nanda Date: 07/07/2016 09:42 AM : : Hospital Admission Number: [id number] Location: ER: :: 1950 Gender: Male Height: 73 in : :Age: 66 yrs Race: WH Weight: 230 lb : :Reason For Study: Eval LV Fx : : BSA: 2.3 meters2 : :History: History of Ablation, New onset of atrial flutter / : :atrial fibrillation. CP, SOB : + ---+ MMode/2D Measurements \T\ Calculations IVSd: 0.93 cm LVIDd: 4.9 cm FS: 43.4 % Ao root diam: 3.5 cm LVPWd: 0.92 cm LVIDs: 2.8 cm EDV(Teich): 115.5 ml ACS: 2.4 cm ESV(Teich): 29.6 ml EF(Teich): 74.4 % Normal Measurement Values: + + :LVIDd (3.5-5.7cm) IVSd (0.6-1.1cm) LVPWd (0.6-1.1cm) Aortic Root (2.0-3.7cm)Left Atrium (1.5-4.0cm): :LV Vol(d) (76-115ml) LV Vol(s) (29-48ml) Ejec Fraction (50-65%)PV Mynor (0.6- 1.2m/s) TV Mynor (0.4-1.0m/s) : :MV E Mynor (0.8-1.0m/s)MV A Mynor (0.3-1.0m/s)LVOT Mynor (0.7-1.2m/s) Asc Ao Mynor ( 0.9-1.8m/s) : + + Doppler Measurements \T\ Calculations MV E max mynor: Ao V2 max: LV V1 max: PA V2 max: 116.0 cm/sec 133.0 cm/sec 114.0 cm/sec 97.7 cm/sec Ao max PG: LV V1 max PG: PA max P.1 mmHg 5.2 mmHg 3.8 mmHg Left Ventricle The left ventricle is normal in size. There is normal left ventricular wall thickness. The left ventricular ejection fraction is normal. Ejection Fraction = 75%. There is Doppler evidence for diastolic dysfunction. The left ventricular wall motion is normal. Right Ventricle The right ventricle is normal in size and function. Atria The left atrial size is normal. Right atrial size is normal. Mitral Valve The mitral valve is normal in structure and function. There is no evidence of mitral valve prolapse. There is no mitral valve stenosis. There is trace mitral regurgitation. Tricuspid Valve Normal tricuspid valve. No tricuspid regurgitation. Aortic Valve The aortic valve is normal in structure and function. There is no aortic stenosis. There is no aortic insufficiency. Pulmonic Valve The pulmonic valve is normal in structure and function. There is no pulmonic valvular regurgitation. Great Vessels The aortic root is normal size. Pericardium/Pleural There is no pericardial effusion. Conclusion A complete two-dimensional transthoracic echocardiogram was performed (2D, M-mode, Doppler and color flow Doppler). The rhythm is atrial flutter. The left ventricular ejection fraction is normal. Ejection Fraction = 75%. There is Doppler evidence for diastolic dysfunction. The left ventricular wall motion is normal. The right ventricle is normal in size and function. Normal appearing valves. There is trace mitral regurgitation. There is no pericardial effusion. Final Reading Physician: Mervat Charlton signed on 07/07/2016 12:59 PM Ordering Physician: Donal Forrester Performed By: Viral Josue, RDCS
[2016-07-07] MEDS ORDERED: ASPIRIN 81 MG CHEWABLE TAB ONE (13:02)
[2016-07-07] MEDS ORDERED: PANTOPRAZOLE SODIUM 40 MG TAB PO SCH (13:30)
[2016-07-07 14:07] VITALS: BP 121/76; PULSE 71; TEMP 97.7; O2SAT 96
--- NOTE | 2016-07-07 17:41 | GCON ---
[f rep st] CONSULTATION CARDIOLOGY CONSULTATION DATE OF CONSULTATION: 07/07/2016 INDICATION: Atrial flutter, symptoms of palpitations. HISTORY OF PRESENT ILLNESS: The patient is a 66-year-old male seen in consultation here in the [facility] department at the request of Dr. Natalee Velasco. His cardiovascular history is significant for a supraventricular tachycardia. 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 Additionally he has a history of dyslipidemia. He has no history of structural or is chemic heart disease. He was admitted to [facility] in March 2016, with atrial fl utter. At that time he spontaneously converted to normal sinus rhythm after being treated with intra venous diltiazem. He did have a slight troponin elevation during the hospitalization, which was thou ght to be related to supply demand mismatch. An echocardiogram done at that time demonstrated a norm al ejection fraction without significant valvular heart disease or atrial enlargement. He was seen i n followup by Dr. Yovanny Pickett. Plans were for stress test and consideration of ablation, however, the p atient never followed up. He states that he drinks alcohol 4 or 5 times a week, up to 7 drinks at a time, usually over a 3 to 4 hour period. He comes in today with complaints of palpitations. About a week ago he had a 30 minute episode of pa lpitations. Last night he developed palpitations when he went to bed. This was described as a racing heart sensation without associated shortness of breath, chest pain, chest pressure, heaviness, or d yspnea. Because of these complaints he came into the emergency department here. On arrival he was no joe to be tachycardic. His heart rate was 102 beats per minute with a blood pressure of 132/88. His initial echocardiogram demonstrated atrial flutter with a resting heart rate of 142 beats per minute . He had an incomplete right bundle branch block, with a left anterior fascicular block. He was crystal joe with IV diltiazem with improvement in his heart rate, currently he has very minor palpitations. PAST MEDICAL HISTORY: 1. Supraventricular tachycardia, status post left lateral pathway ablation in 2008. 2. History of hyperlipidemia, treated as an outpatient with atorvastatin. 3. Gastroesophageal reflux disease. 4. Probable alcohol abuse. 5. Obesity. HOME MEDICATIONS: He takes multiple supplements, as well as atorvastatin. FAMILY HISTORY: Apparently he had a daughter who suffered a myocardial infarction in her 20s. ALLERGIES: He has no allergies to prescribed medications. SOCIAL HISTORY: He is , accompanied by his . 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 He admits to seven 1 shot drinks of alcohol 4 or 5 times a week. He used to smoke, quit at the age o f 51. Currently uses marijuana recreationally, although no hard drugs. He is an active gentleman, li kes to golf 3 or 4 times a week, and exercises on other days. REVIEW OF SYSTEMS: A full 10-point review of systems was performed, is otherwise negative. PHYSICAL EXAMINATION: VITAL SIGNS: His blood pressure is currently 123/88, mean is 99, heart rate o f 140, O2 saturation 95% on room air. GENERAL: A healthy white male in no acute distress. HEENT: Nor mocephalic, atraumatic. He has anicteric sclerae, oropharynx unremarkable. Carotids 2+ bilaterally, with no bruits. He has no jugular venous distention, adenopathy or thyromegaly. RESPIRATORY: He is b reathing easily, resting comfortably, using no accessory muscles on auscultation. He has clear lung farrar bilaterally. CARDIOVASCULAR: Precordium inspection is unremarkable, PMI is nondisplaced. On a uscultation he is tachycardic. He has no murmurs gallops or rubs. ABDOMEN: Soft and nontender. He jay s normoactive bowel sounds with no hepatosplenomegaly. His abdominal aorta is not palpable. EXTREMIT IES: Warm, well perfused, without edema. Vasculature has 2+ radial and dorsal pedal pulses. DATABASE: Electrocardiogram demonstrates atrial flutter with a heart rate of 142 beats per minute. There is an incomplete right bundle branch block with left anterior fascicular block. His chest x-ra y demonstrated minimal airways disease. Sodium 143, potassium 4.4, BUN 16, creatinine 0.7, troponin less than 0.012. INR 0.7, white blood cell count 12.58, hematocrit 50.4, platelet count 269,000. IMPRESSION: The patient is a fairly healthy 66-year-old male [facility] and was found to be in rapid atrial flutter. He has a history of a similar pres entation this last March, and a history of supraventricular tachycardia status post ablation in 2 . He is hemodynamically stable and tolerating this rhythm without difficulties. He had an echocar diogram done in March, which indicated normal ejection fraction. Possible contributing factors in clude heavy alcohol use. Patient admits to 7 drinks at least 4 or 5 times a week. Unfortunately, the patient did eat shortly after arrival to the emergency department. His CHADsVASc score is 1, given his age of 66. RECOMMENDATIONS: 1. We will try to rate control him here in the emergency department. Toward that goal he was given 180 mg of diltiazem p.o. His IV diltiazem drip will be stopped. We will use intravenous verapamil to try to slow his heart rate down, as this has a slightly longer half-life than IV diltiazem. 2. He has been started on Eliquis 5 mg twice daily. 3. Hopefully we will be able to rate control him and begin his anticoagulation so that he can be di scharged from the emergency department today. I would like him to follow up with Dr. Pickett in an exped ited fashion, to consider atrial flutter ablation. 4. He and I did talk about the social aspects of his atrial flutter and the potential contributing influence of his heavy alcohol use. /[id number]/MODL
--- NOTE | 2016-07-07 21:32 | GDS ---
[f rep st] DISCHARGE SUMMARY DISCHARGE DIAGNOSES: 1. Atrial flutter with rapid ventricular rate. Spontaneously converted to normal sinus rhythm. 2. Hyperlipidemia. 3. Gastroesophageal reflux disease. 4. History of supraventricular tachycardia status post ablation. 5. Alcohol abuse. HISTORY: For details, please see dictated history and physical on this same date by myself. In [facility], the patient is a 66-year-old male with history of paroxysmal atrial flutter who presented to the Emergency Department with heart palpitations. HOSPITAL COURSE: The patient arrived in the Emergency Department in atrial flutter with rapid ventr icular rate in the 140s. He was given an IV diltiazem bolus, and started on IV diltiazem drip. A C ardiology consult was obtained for possible cardioversion. However, the patient had a sandwich in t Emergency Department. He then received an IV verapamil dose per Cardiology and spontaneously con verted to normal sinus rhythm. It is noted that his [id number] score is now 1 based on his age of 66. He was started on Eliquis at discharge in addition to oral diltiazem and it is recommend he fo llow up with Dr. Pickett for consideration of ablation. DISPOSITION: Patient is discharged home in stable condition. FOLLOWUP: 1. Dr. Pickett. 2. Primary care. DISCHARGE MEDICATIONS: 1. Please see VoluBill for completed, updated outpatient medication list. 2. New medications on discharge include Eliquis 5 mg p.o. b.i.d. (#60, no refills), Cardizem ER 180 mg p.o. daily (#30, no refills). 3. Will continue all other medications as prescribed. /[id number]/MODL
== END 2016-07-07 13:35 | disposition home or self-care (01) ==
LOC: UNDOADMOB 08:37
DX: I48.92 Unspecified atrial flutter (principal); E78.5 Hyperlipidemia, unspecified; K21.9 Gastro-esophageal reflux disease without esophagitis; F10.10 Alcohol abuse, uncomplicated
CPT/HCPCS: 96365

== ENCOUNTER 2017-04-13 07:47 | Day surgery (SDC) | payer OTHER, MEDICARE ==
--- NOTE | 2017-04-13 08:04 | CPEKG ---
Heart Rate: 143 RR Interval: 420 QRSD Interval: 118 QT Interval: 328 QTC Interval: 506 P [place]: 0 QRS [place]: -124 T Wave [place]: -26 EKG Severity - ABNORMAL ECG - EKG Impression: SINUS TACHYCARDIA EKG Impression: RBBB AND LPFB Electronically Signed By: Micheal Fuchs 14-Apr-2017 07:26:19
--- NOTE | 2017-04-13 08:18 | EDPHY ---
H & P Time Seen by Provider: 04/13/17 08:05 HPI/ROS: CHIEF COMPLAINT: "Fast heart rate" HISTORY OF PRESENT ILLNESS: The patient is a 66-year-old male status post cardiac ablation and history of paroxysmal atrial flutter who presents emergency department with a fast heart rate. Patient states he went to the gym yesterday and worked out. When he finished around 5:00 p.m. and drank a 5 hr energy. He felt an irregular and fast heart rate. He felt like this was secondary to his work out. We went to bed last night his heart rate continued to be fast. This felt slightly different than his previous episode atrial flutter. He was less severe. He had no flutter sensation. He denies shortness of breath, lightheadedness or dizziness. This morning he continued to have fast heart rate. His made him come to the emergency department. Of note, the patient is not been on any medications. In June of 2016 he was seen in the emergency department for atrial flutter. He was treated with Eliquis and diltiazem but he has not been taking either of these medications. REVIEW OF SYSTEMS: My complete review of systems is negative except as mentioned in the HPI. Past Medical/Surgical History: Includes atrial fibrillation status post ablation, atrial flutter, GERD Past surgical history: Hip surgery Social history: The patient does not smoke tobacco. Occasionally smokes THC. He has 4-5 drinks per night. Smoking Status: Former smoker Physical Exam: 36.7, 168/96, 135, 19, 94% on room air GENERAL: Well-appearing, in no acute distress, alert. HEENT: Eyes normal to inspection, normal pharynx, no signs of dehydration. NECK: No thyromegaly, no lymphadenopathy, supple. RESPIRATORY: Clear to auscultation bilaterally, no rales, rhonchi or wheezing. CVS: Regular tachycardia, no rubs, murmurs, or gallops. ABDOMEN: Soft, nontender, nondistended, no organomegaly. BACK: Normal to inspection, no CVA tenderness. SKIN: Normal color, no rash, warm, dry. No pallor. EXTREMITIES: No pedal edema, no calf tenderness, no Homans sign or cords, no joint swelling. NEURO/PSYCH: Alert and oriented x3, normal mood and affect, normal motor sensory exam. No obvious cranial nerve deficit. Constitutional: Initial Vital Signs Temperature (C) 36.7 C 04/13/17 08:02 Heart Rate 135 H 04/13/17 08:02 Respiratory Rate 19 04/13/17 08:02 Blood Pressure 168/96 H 04/13/17 08:02 O2 Sat (%) 94 04/13/17 08:02 O2 Delivery Mode Room Air Allergies/Adverse Reactions: tetanus and diphtheria toxoids [tetanus & diphtheria toxoids] Allergy (Verified 03/18/16 10:49) Home Medications: Medication Instructions Recorded Atorvastatin Calcium [Lipitor 20 20 mg PO DAILY 12/18/14 mg (*)] Esomeprazole Mag Trihydrate 40 mg PO DAILY 12/18/14 [Nexium] Multivitamins [Multivitamin (*)] 1 tab PO DAILY 12/18/14 [place]-3 Fatty Acids [Fish Oil 1000 1,000 mg PO DAILY18 12/18/14 mg (*)] Herbals/Supplements -Info Only 1 ea PO DAILY 03/18/16 Psyllium Husk [Metamucil] 1.56 gm PO DAILY 03/18/16 Aspirin EC [Aspirin EC 81 mg (*)] 81 mg PO DAILY #100 tab 03/19/16 Apixaban [Eliquis] 5 mg PO BID #60 tab 07/07/16 Diltiazem Cd [Cardizem ER Q24hr] 180 mg PO DAILY #30 cap 07/07/16 Medical Decision Making ED Course/Re-evaluation: In the emergency department I discussed possible etiologies with the patient. I answered all his questions. The patient initially told me in his history that he did not take any of his medications. He states he was discharged from the hospital with a bowel Eliquis but never filled the prescription. I explained possible treatment options and that I would paged Cardiology. I discussed cardioversion verses treatment with IV diltiazem. The patient called the nurse into his room and stated he was mistaken. He states he has been taking Eliquis but not diltiazem. EKG:Atrial flutter at 143. Patient's CBC showed elevated white count of 12. Chemistry panel was unremarkable. Troponin and TSH are pending. Coags are pending. I discussed the case with Cardiology. They are in the emergency department to evaluate the patient. I rechecked the patient. He had no new complaints. He continued to remain tachycardic in flutter. 935: I discussed the case again with Cardiology. They were in the emergency department. The patient did not convert after the initial bolus of Cardizem. He will be admitted to be cardioverted. The patient agrees with this plan. Differential Diagnosis: My differential includes but is not limited to atrial flutter, ACS, acute IN, electrolyte abnormality, sugar abnormality, PE, dehydration Critical Care Time: Patient required 35 min of critical care time. This was due the patient's rapid heart rate, consultation with Cardiology, need for diltiazem IV push and IV drip, frequent rechecks. - Data Points Laboratory Results: Laboratory Results 04/13/17 08:07 04/13/17 08:07 04/13/17 04/13/17 04/13/17 08:07 08:07 08:07 WBC 12.68 10^3/uL H 10^3/uL (3.80-9.50) RBC 5.18 10^6/uL 10^6/uL (4.40-6.38) Hgb 16.8 g/dL g/dL (13.7-17.5) Hct 48.4 % % (40.0-51.0) MCV 93.4 fL fL (81.5-99.8) MCH 32.4 pg pg (27.9-34.1) MCHC 34.7 g/dL g/dL (32.4-36.7) RDW 12.5 % % (11.5-15.2) Plt Count 242 10^3/uL 10^3/uL (150-400) MPV 11.0 fL fL (8.7-11.7) Neut % (Auto) 74.2 % % (39.3-74.2) Lymph % (Auto) 16.6 % % (15.0-45.0) [place] % (Auto) 6.0 % % (4.5-13.0) Eos % (Auto) 1.9 % % (0.6-7.6) Baso % (Auto) 0.7 % % (0.3-1.7) Nucleat RBC Rel Count 0.0 % % (0.0-0.2) Absolute Neuts (auto) 9.40 10^3/uL H 10^3/uL (1.70-6.50) Absolute Lymphs (auto) 2.11 10^3/uL 10^3/uL (1.00-3.00) Absolute Monos (auto) 0.76 10^3/uL 10^3/uL (0.30-0.80) Absolute Eos (auto) 0.24 10^3/uL 10^3/uL (0.03-0.40) Absolute Basos (auto) 0.09 10^3/uL 10^3/uL (0.02-0.10) Absolute Nucleated RBC 0.00 10^3/uL 10^3/uL (0-0.01) Immature Gran % 0.6 % % (0.0-1.1) Immature Gran # 0.08 10^3/uL 10^3/uL (0.00-0.10) PT 13.7 SEC SEC (12.0-15.0) INR 1.03 (0.83-1.16) APTT 30.9 SEC SEC (23.0-38.0) Sodium 143 mEq/L mEq/L (135-145) Potassium 4.0 mEq/L mEq/L (3.5-5.2) Chloride 107 mEq/L mEq/L (97-110) Carbon Dioxide 24 mEq/l mEq/l (22-31) Anion Gap 12 mEq/L mEq/L (8-16) BUN 15 mg/dL mg/dL (7-23) Creatinine 0.8 mg/dL mg/dL (0.7-1.3) Estimated GFR > 60 Glucose 128 mg/dL H mg/dL (70-100) Calcium 9.3 mg/dL mg/dL (8.5-10.4) Total Bilirubin 1.4 mg/dL mg/dL (0.1-1.4) Conjugated Bilirubin 0.3 mg/dL mg/dL (0.0-0.5) Unconjugated Bilirubin 1.1 mg/dL mg/dL (0.0-1.1) AST 36 IU/L IU/L (17-59) ALT 46 IU/L IU/L (21-72) Alkaline Phosphatase 95 IU/L IU/L (38-126) Troponin I < 0.012 ng/mL ng/mL (0.000-0.034) Total Protein 7.9 g/dL g/dL (6.3-8.2) Albumin 4.2 g/dL g/dL (3.5-5.0) TSH 04/13/17 08:07 WBC RBC Hgb Hct MCV MCH MCHC RDW Plt Count MPV Neut % (Auto) Lymph % (Auto) [place] % (Auto) Eos % (Auto) Baso % (Auto) Nucleat RBC Rel Count Absolute Neuts (auto) Absolute Lymphs (auto) Absolute Monos (auto) Absolute Eos (auto) Absolute Basos (auto) Absolute Nucleated RBC Immature Gran % Immature Gran # PT INR APTT Sodium Potassium Chloride Carbon Dioxide Anion Gap BUN Creatinine Estimated GFR Glucose Calcium Total Bilirubin Conjugated Bilirubin Unconjugated Bilirubin AST ALT Alkaline Phosphatase Troponin I Total Protein Albumin TSH Pending Medications Given: Diltiazem/Dextrose (Diltiazem 125mg/125ml (Premix)) 125 mls @ 0 mls/hr IV CONT THUY; Titrate PRN Reason: Protocol Stop: 05/03/17 10:00 Last Admin: 04/13/17 09:05 Dose: 125 mls Discontinued Medications Diltiazem HCl (Cardizem 25 Mg/5 Ml Vial) 15 mg IVP EDNOW ONE Stop: 04/13/17 08:21 Last Admin: 04/13/17 09:06 Dose: 15 mg Sodium Chloride (Ns) 500 mls @ 0 mls/hr IV ONCE ONE PRN Reason: Wide Open Stop: 04/13/17 08:33 Last Admin: 04/13/17 09:06 Dose: 500 mls Departure - Departure Disposition: To OP Cath/Surgery Clinical Impression: Atrial flutter Qualifiers: Atrial flutter type: typical Qualified Code(s): I48.3 - Typical atrial flutter Condition: Good
[2017-04-13] MEDS ORDERED: DILTIAZEM 25 MG/5 ML VIAL IVP ONE (08:20)
[2017-04-13] MEDS ORDERED: DILTIAZEM 125 MG in D5W 125 ML IV ONE (08:21)
[2017-04-13] MEDS ORDERED: NS 500 ML IV ONE (08:32)
[2017-04-13 08:55] LABS: PLATELET COUNT 242 10^3/uL (150-400)
[2017-04-13] MEDS ORDERED: DILTIAZEM 50 MG/10 ML VIAL IV ONE (08:58)
[2017-04-13] MEDS ORDERED: DILTIAZEM HCL/D5W 125 ML IV SCH (09:00)
[2017-04-13 09:15] LABS: INR 1.03 (0.83-1.16); PROTIME(PATIENT) 13.7 SEC (12.0-15.0)
[2017-04-13] MEDS ORDERED: APIXABAN 5 MG TAB PO SCH (09:30)
[2017-04-13] MEDS ORDERED: NS 1,000 ML IV ONE ×2 (09:32→10:45)
[2017-04-13] MEDS ORDERED: ATROPINE SULFATE 1 MG/10 ML SYR IVP ONE ×2 (09:32→10:44)
[2017-04-13 09:48] VITALS: TEMP 98.6
[2017-04-13 09:58] VITALS: PULSE 138
--- NOTE | 2017-04-13 10:43 | PDHPUP ---
History & Physical Update H&P update statement: This history and physical update is based on an assessment of the patient which was completed after admission or registration (within 24 hours), but prior to the surgery/procedure. pt with afib / palpittations. no cp H&P update: H&P reviewed & patient examined (no change from er)
--- NOTE | 2017-04-13 10:44 | PDHPUP ---
History & Physical Update H&P update statement: This history and physical update is based on an assessment of the patient which was completed after admission or registration (within 24 hours), but prior to the surgery/procedure. H&P update: H&P reviewed & patient examined (pt for rupali c/v w anesthesia . )
[2017-04-13] MEDS ORDERED: PROPOFOL 200 MG/20 ML VIAL ONE ×2 (11:00)
[2017-04-13] MEDS ORDERED: ALBUTEROL 3 ML DEYVIAL IH PRN (11:09)
[2017-04-13] MEDS ORDERED: ONDANSETRON 4 MG/2 ML VIAL IVP PRN (11:09)
[2017-04-13] MEDS ORDERED: NALOXONE HCL 0.4 MG/ML INJ IVP PRN (11:09)
--- NOTE | 2017-04-13 11:10 | PDANEPAE ---
ANE History of Present Illness [place] + CV ANE Past Medical History - Cardiovascular History Hx Hypertension: No Hx Arrhythmias: Yes Hx Chest Pain: No Hx Coronary Artery / Peripheral Vascular Disease: No Hx CHF / Valvular Disease: No Hx Palpitations: No Cardiovascular History Comment: ABLATION 6 YRS AGO - Pulmonary History Hx COPD: No Hx Asthma/Reactive Airway Disease: No Hx Recent Upper Respiratory Infection: No Hx Oxygen in Use at Home: No Hx Sleep Apnea: No - Neurologic History Hx Cerebrovascular Accident: No Hx Seizures: No Hx Dementia: No - Endocrine History Hx Diabetes: No - Renal History Hx Renal Disorders: No - Liver History Hx Hepatic Disorders: No - Neurological & Psychiatric Hx Hx Neurological and Psychiatric Disorders: No - Cancer History Hx Cancer: No - GI History Hx Gastrointestinal Disorders: Yes Gastrointestinal History Comment: ACID REFLUX - Other Health History Other Health History: NEG - Chronic Pain History Chronic Pain: No (HIP PAIN) - Surgical History Prior Surgeries: HEART ABLATION FOR TACHYCARDIA. 6 YRS AGO - NO PROBLEMS SINCE ANE Review of Systems Review of Systems: ANE Patient History - Allergies Allergies/Adverse Reactions: tetanus and diphtheria toxoids [tetanus & diphtheria toxoids] Allergy (Verified 03/18/16 10:49) - Home Medications Home Medications: Atorvastatin Calcium [Lipitor 20 mg (*)] 20 mg PO DAILY 12/18/14 [Last Taken 03/01 08:00] Esomeprazole Mag Trihydrate [Nexium] 40 mg PO DAILY 12/18/14 [Last Taken 08:00] Multivitamins [Multivitamin (*)] 1 tab PO DAILY 12/18/14 [Last Taken 04/12/17 08 :00] [place]-3 Fatty Acids [Fish Oil 1000 mg (*)] 1,000 mg PO DAILY18 12/18/14 [Last Taken 04/12/17 08:00] Herbals/Supplements -Info Only 1 ea PO DAILY 03/18/16 [Last Taken 04/12/17 08:00 ] Psyllium Husk [Metamucil] 1.56 gm PO DAILY 03/18/16 [Last Taken 04/12/17 08:00] Glucosamine 04/13/17 [Last Taken 04/12/17 08:00] - NPO status NPO Since - Liquids (Date): 04/12/17 NPO Since - Solids (Date): 04/12/17 NPO Since - Solids (Time): 18:00 - Smoking Hx Smoking Status: Former smoker - Family Anes Hx Family Hx Anesthesia Complications: NEG ANE Labs/Vital Signs - Labs Result Diagrams: 04/13/17 08:07 04/13/17 08:07 - Vital Signs Blood Pressure: 110/75 Heart Rate: 138 Respiratory Rate: 16 O2 Sat (%): 97 Height: 182.88 cm Weight: 104.326 kg ANE Physical Exam - Airway Neck exam: FROM Mallampati Score: Class 2 - Pulmonary Pulmonary: clear to auscultation - Cardiovascular Cardiovascular: irregularly irregular - ASA Status ASA Status: II ANE Anesthesia Plan Anesthesia Plan: GA with mask
--- NOTE | 2017-04-13 11:24 | POSTANESTH ---
Post Anesthetic Evaluation Cardiovascular Status: Normal, Stable Respiratory Status: Normal, Stable Level of Consciousness/Mental Status: Can Participate in Eval Pain Control: Adequate, Prn Tx Ordered Nausea/Vomiting Control: Adequate, Prn Tx Ordered Complications Possibly Related to Anesthesia: None Noted
--- NOTE | 2017-04-13 11:32 | CPEKG ---
Heart Rate: 92 RR Interval: 652 P-R Interval: 196 QRSD Interval: 106 QT Interval: 424 QTC Interval: 525 P [place]: 56 QRS [place]: -1 T Wave [place]: 22 EKG Severity - ABNORMAL ECG - EKG Impression: SINUS RHYTHM EKG Impression: SUPRAVENTRICULAR BIGEMINY EKG Impression: IRBBB AND LPFB EKG Impression: CONSIDER INFERIOR INFARCT EKG Impression: BORDERLINE PROLONGED QT INTERVAL Electronically Signed By: David Patrick 13-Apr-2017 20:42:34
--- NOTE | 2017-04-13 12:06 | PDTEE1 ---
[place] Cardioversion Procedure Procedure: transesophageal echo Indications: other (Aflutter) Anticoagulation: eliquis Procedural Details: Pads were placed in anterior-posterior position. [place] probe was advanced and standard images obtained. There is no evidence of left atrial or left atrial appendage thrombus. Synchronized cardioversion attempt #1: 360J Results: normal sinus rhythm Conclusions: successful [place] cardioversion (follow up - jose 2 weeks // will begin diet wgt reduction // will take eliquis bid 30 days and miss no doses / will take metoprolol succinate prn . rev w his and he -) Patient Problems: Problems Problem Status Onset Atrial flutter Acute Hip arthritis Acute SVT (supraventricular tachycardia) Acute
[2017-04-13 12:37] VITALS: BP 103/64; RESP 23; O2SAT 94
--- NOTE | 2017-04-13 12:42 | GCON ---
[f rep st] CONSULTATION CARDIOLOGY CONSULTATION SUPERVISING MICROELECTRONICS ASSEMBLER: Dr. Isauro Tan. INDICATION FOR CARDIOLOGY CONSULTATION: Atrial flutter with rapid ventricular response. HISTORY OF PRESENT ILLNESS: The patient is a 66-year-old male, who is known to our practice. He has significant past history of paroxysmal supraventricular tachycardia, in which he had an ablation in 2008. He has also been seen over the last year 2-3 times for episodes of atrial flutter with rapid ventricular response. The patient reports to me today that yesterday, he had been in his normal state of health. He had worked out yesterday evening, reporting that he did drink half of thing of 5 hour energy, and suddenly felt that his pulse was racing, but very regular. He thought potentially that he went into arrhythmia. He reports no chest pain, or shortness of breath, or lightheadedness, or any other associated symptoms with the rapid heart rate. He went home and rested for the rest of the evening, reporting no significant problems throughout the evening. But when he awoke this morning, he felt mildly lightheaded, and felt his pulse, and found that he continued to be in a fast heart rate. From that point he came to the emergency department for further evaluation. Upon arrival , electrocardiogram was done, which confirmed the diagnosis of atrial flutter with RVR, probable two-to-one. At current time, he denies any. He was given a dose of IV diltiazem, unfortunately it does not appear to have any affect. He reports no history of orthopnea, PND, edema, near-syncope, or syncopal events. Denies symptoms suggestive of TIA or CVA. Reports no bleeding history, no recent fevers, chills, or night sweats. PAST MEDICAL HISTORY: 1. The patient has a significant past medical history that includes SVT, status post lateral pathway ablation in 2008, paroxysmal atrial flutter. 2. History of hyperlipidemia, in which he is treated with statin therapy. 3. Gastroesophageal reflux disease. 4. Probable alcohol abuse. 5. Obesity. FAMILY HISTORY: He reports a family history supposedly of a daughter who suffered a myocardial infarction in her 20s. SOCIAL HISTORY: Patient works as a restauranteur, he is . He is a previous smoker, quitting at age 51, he occasionally uses marijuana recreationally, he admits that he drinks 3-4 drinks a night. Denies any other illicit drug use. ALLERGIES: Tetanus. HOME MEDICATIONS: Metamucil p.o. daily, fish oil 1000 mg p.o. daily, multivitamin 1 tablet p.o. daily, Nexium 40 mg p.o. daily, atorvastatin 20 mg p.o. daily. Patient reports he has not been on diltiazem, Eliquis, or aspirin since his last cardioversion, 30 days past his last hospital visit in June of 2016. REVIEW OF SYSTEMS: A 10-point review of systems on this patient all negative except as mentioned above. PHYSICAL EXAMINATION: GENERAL APPEARANCE: Medium built, moderately obese, male. He is alert and oriented to person, place, time, situation. Appears to be under no acute distress. VITAL SIGNS: Current vital signs are blood pressure of 133/100, heart rate 140. Atrial flutter on the monitor with ventricular rate at 140 BPM. Respirations are 16, saturating 98% on room air. Temperature of 37.0 degrees Celsius. HEENT: Head is normocephalic. Lips and tongue are pink and moist with no signs of cyanosis. Conjunctivae pink. NECK: Trachea is midline, +2 carotid pulses bilateral, no auscultated bruits, no jugular vein distention. RESPIRATORY: Lungs are clear to auscultation, no rhonchi, rales or wheezes, no accessory muscle use, no intercostal muscle retraction noted. CARDIAC: Tachy rate, regular rhythm, S1, S2. No S3, S4, gallops, rubs or murmurs noted. ABDOMEN: Soft, nontender, bowel sounds x4 quadrants, no organomegaly, no palpable masses. SKIN: Caro, warm, dry, no cyanosis, no clubbing, no peripheral edema. VASCULAR: +2 carotids bilateral, + 2 radials bilateral, +1 dorsal pedal and posterior tibial pulses bilateral. LABORATORY STUDIES: Laboratory studies drawn today show WBC of 12.68, hemoglobin of 16.8, hematocrit of 48.4, platelet count 242. INR was 1.03. Sodium 143, potassium 4.0, chloride 107, CO2 24, BUN 15, creatinine 0.8, glucose 128, calcium 9.3, total bilirubin 1.4, AST 36, ALT 46, alkaline phosphate 95, troponin less than 0.012. Total protein 7.9, albumin 4.2. TSH is currently pending. STUDIES: Admission electrocardiogram shows atrial flutter with right bundle branch block, probable 2:1. Previous echocardiogram, done March 19, 2016, showed normal LV size and thickness, normal LV systolic function with EF of 65% to 70%, diastolic dysfunction was noted. No regional wall motion abnormalities. RV was normal size and function. LA was normal size, RA was normal size, trace MR. ASSESSMENT AND PLAN: 1. Atrial flutter: Patient with noted history of atrial flutter in the past, has not been on any AV jo agents since last hospitalization June of 2016. Reporting episodes started at approximately 5 p.m. yesterday afternoon. He has been n.p.o. since 9. He is hemodynamically stable, besides reporting mild lightheadedness. Has had no near syncope, chest pain, or shortness of breath. He has been started on a diltiazem drip, which has shown little control of his rate response. At this time, I do think it would be valid for him to undergo [place] cardioversion to attempt to get him back in regular rhythm. Risks and benefits of this procedure were explained to the patient, he verbalizes understanding and is wanting to proceed. We will have him go up to our [facility] and be prepped for the procedure, and with anesthesia's assistance, Dr. Tan will perform a [place] cardioversion on patient. 2. As for anticoagulation, he has a CHADS-VASc score of 1, but since we are doing a cardioversion, we will want him to be on full anticoagulation for 30 days. He has been on Eliquis in the past, post cardioversions, in which he reports no problems. Risks and benefits of this were explained to the patient, and he verbalized understanding and is wanting to proceed. We will start him on 5 mg p.o. b.i.d. of Eliquis. 3. Hyperlipidemia: Patient is on statin therapy. Continue his home atorvastatin dose. 4. History of gastroesophageal reflux disease: Patient reports no symptoms since he is on his Nexium, we will continue on his home dosage. 5. Possible EtOH abuse: Patient reports drinking 4-5 drinks on a daily basis, I have discussed that this could be potentially a trigger for his ongoing atrial flutter. He reports he will attempt to cut back. Ultimately, when patient gets converted, I do think he should follow up with Dr. Pickett, his primary eyeglass frame truer in the near future, due to his increasing episodes of atrial flutter, and potentially discussed long-term therapy, including possible ablation. Thank you for this consultation. We will be glad to follow along with you. /[id number]/MODL MTDD
[2017-04-14] MEDS ORDERED: METOPROLOL SUCCINATE XR 25 MG TAB PO SCH (09:00)
== END 2017-04-13 12:23 | disposition home or self-care (01) ==
LOC: FCATH 09:35
PROVIDERS: ATTEND Internal Medicine
PROC: 3E033RZ Introduction of Antiarrhythmic into Peripheral Vein, Percutaneous Approach (ICD-10-PCS; principal; 2017-04-13)
PROC: B245ZZ4 Ultrasonography of Left Heart, Transesophageal (ICD-10-PCS; principal; 2017-04-13)
DX: I48.3 Typical atrial flutter (principal); K21.9 Gastro-esophageal reflux disease without esophagitis; F12.90 Cannabis use, unspecified, uncomplicated; E78.5 Hyperlipidemia, unspecified; Z82.49 Family history of ischemic heart disease and other diseases of the circulatory system; Z87.891 Personal history of nicotine dependence
CPT/HCPCS: 96365; J2704

== ENCOUNTER → 2017-05-01 | Outpatient (CLI) | payer OTHER, MEDICARE | LOC: BHFA 09:00 | PROVIDERS: ATTEND Internal Medicine Cardiovascular Disease | DX: I48.91 Unspecified atrial fibrillation (principal) ==

== ENCOUNTER 2017-07-24 19:50 | Emergency (ER) | payer OTHER, MEDICARE ==
[2017-07-24] MEDS ORDERED: METOPROLOL TARTRATE 5 MG/5 ML INJ ONE ×3 (20:43→21:19)
--- NOTE | 2017-07-24 21:06 | EDPHY ---
H & P Time Seen by Provider: 07/24/17 21:03 HPI/ROS: CHIEF COMPLAINT: Atrial flutter HISTORY OF PRESENT ILLNESS: The patient presents the ED with recurrent atrial flutter that began at 4:30 a.m. yhis afternoon. The patient took a unknown dose of metoprolol which did not result in resolution of his symptoms. He has a history of paroxysmal atrial fibrillation. He is currently on aspirin only. The patient is actually scheduled for cardiac ablation on Sunday. The patient denies any history of exertional chest pain or shortness of breath. The patient denies any fever, cough or congestion. He denies pleuritic chest pain. He denies asymmetric calf pain or swelling. REVIEW OF SYSTEMS: A comprehensive 10 point review of systems is otherwise negative aside from elements mentioned in the history of present illness. Source: Patient Exam Limitations: No limitations - Medical/Surgical History Hx Asthma: No Hx Chronic Respiratory Disease: No Hx Diabetes: No Hx Cardiac Disease: Yes Hx Renal Disease: No Hx Cirrhosis: No Hx Alcoholism: No Hx HIV/AIDS: No Hx Splenectomy or Spleen Trauma: No Other PMH: Afib-ablation, GERD - Social History Smoking Status: Former smoker - Physical Exam Exam: General Appearance: Alert, no distress Eyes: Pupils equal and round no pallor or injection ENT, Mouth: Mucous membranes moist Respiratory: There are no retractions, lungs are clear to auscultation Cardiovascular: Tachycardic, irregular Gastrointestinal: Abdomen is soft and nontender, no masses, bowel sounds normal Neurological: A&O, normal motor function, normal sensory exam, normal cranial nerves Skin: Warm and dry, no rashes Musculoskeletal: Neck is supple nontender Extremities: symmetrical, full range of motion Psychiatric: Patient is oriented X 3, there is no agitation Constitutional: Initial Vital Signs Temperature (C) 36.6 C 07/24/17 19:50 Heart Rate 124 H 07/24/17 19:50 Respiratory Rate 16 07/24/17 19:50 Blood Pressure 130/105 H 07/24/17 19:50 O2 Sat (%) 93 07/24/17 19:50 O2 Delivery Mode Room Air Allergies/Adverse Reactions: tetanus and diphtheria toxoids [tetanus & diphtheria toxoids] Allergy (Verified 07/24/17 21:23) Home Medications: Medication Instructions Recorded Atorvastatin Calcium [Lipitor 20 20 mg PO DAILY 11/06/15 mg (*)] Esomeprazole Mag Trihydrate 40 mg PO DAILY 12/18/14 [Nexium] Multivitamins [Multivitamin (*)] 1 tab PO DAILY 12/18/14 [place]-3 Fatty Acids [Fish Oil 1000 1,000 mg PO DAILY18 12/18/14 mg (*)] Psyllium Husk [Metamucil] 1.56 gm PO DAILY 03/18/16 Aspirin EC [Aspirin EC 81 mg (*)] 81 mg PO DAILY #100 tab 03/19/16 Apixaban [Eliquis] 5 mg PO BID #60 tab 04/13/17 Glucosamine Sulfate [Glucosamine 500 mg PO DAILY 04/13/17 Sulfate 500 MG (*)] Metoprolol Succinate Xr [Toprol Xl 25 mg PO DAILY #30 tab 04/13/17 25 mg (*)] Tamsulosin HCl [Flomax 0.4 MG (*)] 0.4 mg PO DAILY 04/13/17 Medical Decision Making - Diagnostics EKG Interpretation: EKG: Complete interpretation has been separately recorded in the [facility] archive. Summary impression: Atrial fib/flutter, rate 137 ED Course/Re-evaluation: The patient was placed on a air sampling and monitoring. He presents to the ED with recurrent atrial fibrillation/flutter. He had an IV established. I ordered 3, 5 mg IV doses of metoprolol. The patient continues to be in a flutter with a rate in the 120 range. I discussed the case with Dr. Arvizu from Cardiology. The patient was offered admission to the hospital versus discharged home on oral metoprolol and follow up with Cardiology in the morning. The patient will resume his Eliquis. The patient would like to be discharged home. He will be NPO after midnight. He will contact [facility] in the morning if he continues to be in atrial flutter. He understands return to the emergency department at any time for any chest pain or shortness of breath. Differential Diagnosis: Differential diagnosis considered includes atrial fibrillation, atrial flutter, congestive heart failure, dehydration, myocardial infarction Departure - Departure Disposition: Home, Routine, Self-Care Clinical Impression: Atrial flutter Condition: Good Instructions: Atrial Flutter (ED) Additional Instructions: 1. Resume Eliquis this evening. 2. Metoprolol 25 mg twice daily. 3. Nothing to eat or drink after midnight. 4. If you are still in atrial fibrillation tomorrow, contact [facility] and they will make arrangements for a cardioversion. 5. Return to the ED for any chest pain, shortness of breath or other concerns. Referrals: Yves Pickett MD [Medical Doctor] - As per Instructions
[2017-07-24] MEDS ORDERED: METOPROLOL TARTRATE 25 MG TAB PO ONE (21:57)
[2017-07-24] MEDS ORDERED: METOPROLOL TARTRATE 25 MG TAB ONE (22:03)
[2017-07-24 22:20] VITALS: BP 127/79
--- NOTE | 2017-07-25 09:36 | CPEKG ---
Heart Rate: 137 RR Interval: 438 QRSD Interval: 112 QT Interval: 308 QTC Interval: 465 QRS [place]: 20 T Wave [place]: -14 EKG Severity - ABNORMAL ECG - EKG Impression: A-FLUTTER/FIBRILLATION EKG Impression: INCOMPLETE RIGHT BUNDLE BRANCH BLOCK EKG Impression: INFERIOR INFARCT, AGE INDETERMINATE Electronically Signed By: David Patrick 25-Jul-2017 20:46:57
== END 2017-07-24 22:21 | disposition home or self-care (01) ==
DX: I48.92 Unspecified atrial flutter (principal); Z79.01 Long term (current) use of anticoagulants; Z87.891 Personal history of nicotine dependence

== ENCOUNTER 2017-07-26 08:01 | Day surgery (SDC) | payer OTHER, MEDICARE ==
[2017-07-26] MEDS ORDERED: fentaNYL 100 MCG/2 ML INJ IVP ONE (08:02)
[2017-07-26] MEDS ORDERED: NS 500 ML IV ONE (08:02)
[2017-07-26] MEDS ORDERED: BENZOCAINE UNIT DOSE SPRAY HURRICAINE MM ONE (08:02)
[2017-07-26] MEDS ORDERED: MIDAZOLAM 2 MG/2 ML VIAL IVP ONE (08:02)
[2017-07-26] MEDS ORDERED: ATROPINE SULFATE 1 MG/10 ML SYR IVP ONE (08:02)
--- NOTE | 2017-07-26 08:24 | CPEKG ---
Heart Rate: 150 RR Interval: 400 P-R Interval: 244 QRSD Interval: 86 QT Interval: 340 QTC Interval: 538 P [place]: 0 QRS [place]: 238 T Wave [place]: -60 EKG Severity - ABNORMAL ECG - EKG Impression: ATRIAL FLUTTER WITH 2:1 BLOCK EKG Impression: FIRST DEGREE AV BLOCK EKG Impression: CHARLI, CONSIDER BIATRIAL ABNORMALITIES EKG Impression: RIGHT VENTRICULAR HYPERTROPHY EKG Impression: PROBABLE INFERIOR INFARCT, AGE INDETERMINATE EKG Impression: LATERAL LEADS ARE ALSO INVOLVED EKG Impression: PROLONGED QT INTERVAL Electronically Signed By: David Patrick 26-Jul-2017 16:35:33
[2017-07-26 08:45] LABS: INR 1.16 (0.83-1.16)
[2017-07-26] MEDS ORDERED: fentaNYL 100 MCG/2 ML INJ ONE (09:22)
[2017-07-26] MEDS ORDERED: MIDAZOLAM 2 MG/2 ML VIAL ONE (09:22)
[2017-07-26] MEDS ORDERED: ETOMIDATE 40 MG/20 ML INJ ONE (09:22)
--- NOTE | 2017-07-26 10:37 | PDPROPOC ---
Sedation Plan of Care Sedation Plan of Care: vital signs stable, mental status noted, patient educated of risks, benefits, alternatives, patient can tolerate sedation ASA Classification: ASA 3 Planned drugs: fentanyl, midazolam, other (etomidate) Mallampati Score: Class 3 Mallampati Reference Image: Patient passed 3-3-2 rule?: No
--- NOTE | 2017-07-26 10:40 | PDGENHP ---
History & Physical Chief Complaint: I am in atrial flutter.. History of Present Illness: Edy has been in atrial flutter since Sunday and is slated for a atrial flutter ablation next Sunday. Pertinent Past, Social, Family History: Reviewed Relevant Physical Exam: tachycardic, regular rhythm, 2:1 blcok lungs clear, no murmur, alert oriented X3. Cardiorespiratory Assessment: see above
--- NOTE | 2017-07-26 10:47 | PDTEE1 ---
[place] Cardioversion Procedure Procedure: electrical cardioversion, transesophageal echo Indications: other (Atrial flutter) Consent: signed and in chart Anticoagulation: eliquis Procedural Details: Pads were placed in anterior-posterior position. [place] probe was advanced and standard images obtained. There is no evidence of left atrial or left atrial appendage thrombus. Synchronized cardioversion attempt #1: 150J Results: normal sinus rhythm Conclusions: successful [place] cardioversion Patient Problems: Problems Problem Status Onset Atrial flutter Acute Hip arthritis Acute SVT (supraventricular tachycardia) Acute
--- NOTE | 2017-07-26 11:05 | CPEKG ---
Heart Rate: 72 RR Interval: 833 P-R Interval: 184 QRSD Interval: 104 QT Interval: 412 QTC Interval: 451 P [place]: 57 QRS [place]: 19 T Wave [place]: 14 EKG Severity - NORMAL ECG - EKG Impression: SINUS RHYTHM EKG Impression: SINUS RHYTHM HAS REPLACED ATRIAL FLUTTER NOTED ON PRIOR ECG EKG Impression: iRBBB Electronically Signed By: David Patrick 26-Jul-2017 16:36:01
== END 2017-07-26 18:42 | disposition home or self-care (01) ==
LOC: FCATH 08:01
PROVIDERS: ATTEND Internal Medicine Cardiovascular Disease
PROC: B246ZZ4 Ultrasonography of Right and Left Heart, Transesophageal (ICD-10-PCS; principal; 2017-07-26)
DX: I48.92 Unspecified atrial flutter (principal); Z79.01 Long term (current) use of anticoagulants; Z87.891 Personal history of nicotine dependence
CPT/HCPCS: J2250; J3010

== ENCOUNTER 2017-07-30 06:58 | Observation (INO) | payer OTHER, MEDICARE ==
[2017-07-30] MEDS ORDERED: NS 1,000 ML IV ONE (07:00)
--- NOTE | 2017-07-30 07:19 | CPEKG ---
Heart Rate: 63 RR Interval: 952 P-R Interval: 192 QRSD Interval: 116 QT Interval: 440 QTC Interval: 451 P [place]: 59 QRS [place]: 7 T Wave [place]: 20 EKG Severity - ABNORMAL ECG - EKG Impression: SINUS RHYTHM EKG Impression: INCOMPLETE RIGHT BUNDLE BRANCH BLOCK Electronically Signed By: Yves Pickett 30-Jul-2017 08:46:18
[2017-07-30 07:50] LABS: PLATELET COUNT 211 10^3/uL (150-400)
[2017-07-30 08:08] LABS: PROTIME(PATIENT) 13.4 SEC (12.0-15.0)
[2017-07-30] MEDS ORDERED: MIDAZOLAM 2 MG/2 ML VIAL IVP ONE (08:09)
--- NOTE | 2017-07-30 08:09 | PDANEPAE ---
ANE History of Present Illness h/ o a. flutter for EPS/ablation ANE Past Medical History - Cardiovascular History Hx Hypertension: No Hx Arrhythmias: Yes Hx Chest Pain: No Hx Coronary Artery / Peripheral Vascular Disease: No Hx CHF / Valvular Disease: No Hx Palpitations: No Cardiovascular History Comment: ABLATION 6 YRS AGO - Pulmonary History Hx COPD: No Hx Asthma/Reactive Airway Disease: No Hx Recent Upper Respiratory Infection: No Hx Oxygen in Use at Home: No Hx Sleep Apnea: No - Neurologic History Hx Cerebrovascular Accident: No Hx Seizures: No Hx Dementia: No - Endocrine History Hx Diabetes: No Hypothyroid: No Hyperthyroid: No Obesity: yes - Renal History Hx Renal Disorders: No - Liver History Hx Hepatic Disorders: No - Neurological & Psychiatric Hx Hx Neurological and Psychiatric Disorders: No - Cancer History Hx Cancer: No - GI History Hx Gastrointestinal Disorders: Yes Gastrointestinal History Comment: ACID REFLUX - Other Health History Other Health History: NEG - Chronic Pain History Chronic Pain: No (HIP PAIN) - Surgical History Prior Surgeries: HEART ABLATION FOR TACHYCARDIA. 6 YRS AGO - NO PROBLEMS SINCE ANE Review of Systems Review of systems is: negative Review of Systems: - Exercise capacity Exercise capacity: >=4 METS ANE Patient History - Allergies Allergies/Adverse Reactions: tetanus and diphtheria toxoids [tetanus & diphtheria toxoids] Allergy (Verified 07/24/17 21:23) - Home Medications Home medications: home medication list seen and reviewed Home Medications: Atorvastatin Calcium [Lipitor 20 mg (*)] 20 mg PO DAILY 12/18/14 [Last Taken ] Esomeprazole Mag Trihydrate [Nexium] 40 mg PO DAILY 12/18/14 [Last Taken ] Multivitamins [Multivitamin (*)] 1 tab PO DAILY 12/18/14 [Last Taken 07/29/17] Psyllium Husk [Metamucil] 1.56 gm PO DAILY 03/18/16 [Last Taken 07/29/17] Tamsulosin HCl [Flomax 0.4 MG (*)] 0.4 mg PO DAILY 04/13/17 [Last Taken 07/29/17 ] Cholecalciferol Vit D3 [Vitamin D3 (*)] 1,000 units PO DAILY 07/30/17 [Last Taken 07/29/17] Enoxaparin [Lovenox 100 MG (*)] 100 mg SQ Q12H 07/30/17 [Last Taken 07/29/17 21: 00] Metoprolol Succinate Xr [Toprol Xl 50 mg (*)] 50 mg PO DAILY 07/30/17 [Last Taken 07/29/17] - Anes Hx Anes Hx: no prior problems - Smoking Hx Smoking Status: Former smoker - Family Anes Hx Family Hx Anesthesia Complications: NEG ANE Labs/Vital Signs - Labs Result Diagrams: 07/30/17 07:20 07/30/17 07:20 - Vital Signs Height: 185 cm Weight: 108.9 kg ANE Physical Exam - Airway Neck exam: FROM Mallampati Score: Class 1 Mouth exam: normal dental/mouth exam - Pulmonary Pulmonary: no respiratory distress - Cardiovascular Cardiovascular: regular rate and rhythym - ASA Status ASA Status: II ANE Anesthesia Plan Anesthesia Plan: general endotracheal anesthesia
[2017-07-30] MEDS ORDERED: ISOPROTERENOL HCL/D5W 0.2 MG/50 ML BAG IV ONE (08:15)
[2017-07-30] MEDS ORDERED: LIDOCAINE 1% 300 MG/30 ML SDV ONE (08:15)
[2017-07-30] MEDS ORDERED: BUPIVACAINE 0.5% 30 ML SDV ONE (08:15)
[2017-07-30] MEDS ORDERED: HEPARIN 10,000 UNIT/10 ML MDV (1,000 UNIT/ML) ONE (08:15)
[2017-07-30] MEDS ORDERED: fentaNYL 100 MCG/2 ML INJ ONE (08:16)
[2017-07-30] MEDS ORDERED: PROPOFOL 200 MG/20 ML VIAL ONE ×2 (08:16)
[2017-07-30] MEDS ORDERED: ONDANSETRON 4 MG/2 ML VIAL ONE (08:19)
[2017-07-30] MEDS ORDERED: DEXAMETHASONE 4 MG/ML VIAL ONE (08:19)
[2017-07-30] MEDS ORDERED: ROCURONIUM 100 MG/10 ML VIAL ONE (08:19)
--- NOTE | 2017-07-30 08:45 | PDGENHP ---
History & Physical Chief Complaint: symptomatic afl History of Present Illness: palpitations Relevant Physical Exam: [id number] cta [id number] Cardiorespiratory Assessment: AFL, multiple CV procedures, most recent last week. On Lovenox until last night. Will check [place] prior to ablation
[2017-07-30] MEDS ORDERED: SUGAMMADEX SODIUM 200 MG/2 ML VIAL IVP ONE (09:49)
[2017-07-30] MEDS ORDERED: DESFLURANE 240 ML BOTTLE IH ONE (10:08)
--- NOTE | 2017-07-30 10:19 | POSTANESTH ---
Post Anesthetic Evaluation Cardiovascular Status: Normal, Stable Respiratory Status: Normal, Stable Level of Consciousness/Mental Status: Can Participate in Eval, Alert and Oriented Pain Control: Adequate, Prn Tx Ordered Nausea/Vomiting Control: Adequate, Prn Tx Ordered Complications Possibly Related to Anesthesia: None Noted
--- NOTE | 2017-07-30 11:27 | EPPROC ---
Electrophysiology Procedure Note: ELECTROPHYSIOLOGIC STUDY AND CATHETER MEDIATED ABLATION FOR SUBEUSTACHIAN ISTHMUS DEPENDENT COUNTERCLOCKWISE ATRIAL FLUTTER: INDICATION: Recurrent atrial flutter Prior ablation for left sided accessory pathway at our institution 9 y ago PROCEDURES PERFORMED: 67486-87 EP evaluation with RA/RV/LA pace/record, with arrhythmia induction 27846-40 EP evaluation with RA/RV pace record, insert/reposition catheter, with arrhythmia induction 08911 SVT ablation 06613 3D mapping Fluoroscopy Catheters & Anesthesia: The patient arrived in the Electrophysiology Laboratory in the fasting state. The right clavicular region, right groin, and left groin area were prepped and draped in the usual sterile manner. Anesthesiologist Dr. Rsuh administered general anesthesia. Appropriate non-invasive blood pressure, pulse oximetry and end-tidal CO2 monitoring was established. All catheters were placed percutaneously using the modified Seldinger technique , and advanced into position under fluoroscopic guidance. One #7 Niuean deflectable octapolar electrode catheter was advanced to the His-bundle position via the left femoral vein and then in coronary sinus . One # 7 Niuean Halo catheter was inserted through the right femoral vein and was placed at the tricuspid annulus. Heparin was administered to keep ACT > 200 seconds. Programmed stimulation was performed from the right atrium, coronary sinus ( left atrium) and right ventricle. Parahisian pacing demonstrated all retrograde conduction over the AV node. Retrograde WBB at 540 ms, concentric activation. On arrival to the Electrophysiology Laboratory the patient was in sinus rhythm. Atrial flutter has been documented previously. In preparation for ablation of typical atrial flutter, a high-resolution 3D (3 dimensional) Carto electroanatomical map of the sub-Eustachian isthmus and right atrium was obtained during pacing of the posterolateral coronary sinus. For ablation of typical atrial flutter, one Agilis sheath was placed in the right atrium. A #8 Niuean deflectable quadrapolar electrode catheter (2mm-5mm- 2mm spacing) with 3.5 mm irrigated tip electrode and location sensor for the Tales2Go mapping system was inserted in the long sheath and advanced to the right atrium. Radiofrequency applications were applied between the tricuspid annulus at 0630 oclock as seen in the [place] view and the inferior vena cava. This achieved conduction block across the isthmus. Following ablation of the atrial flutter, programmed atrial stimulation was performed in the baseline state . No atrial arrhythmias were inducible post ablation. Post ablation, a high-resolution electroanatomical map of the sub-Eustachian isthmus was obtained during pacing of the posterolateral coronary sinus. This confirmed conduction block across the sub-Eustachian isthmus. Bidirectional block was also confirmed by pacing. The catheters were removed. Protamine was administered. Sheaths were removed in the EP lab after applying subcutaneous purse string suture. The patient was transferred to the cardiovascular holding area in stable condition. There were no apparent complications. CONCLUSIONS: 1. Counterclockwise atrial flutter. 2. Successful catheter mediated ablation of cavotricuspid isthmus achieving bi -directional conduction block across cavotricuspid isthmus. 3. No atrial arrhythmias inducible post ablation. 4. No conduction across left sided accessory pathway ablated previously. 5. No apparent complications. Patient Problems: Problems Problem Status Onset Hip arthritis Acute Atrial flutter Acute SVT (supraventricular tachycardia) Acute
--- NOTE | 2017-07-30 11:49 | CPEKG ---
Heart Rate: 60 RR Interval: 1000 P-R Interval: 196 QRSD Interval: 114 QT Interval: 456 QTC Interval: 456 P [place]: 62 QRS [place]: 8 T Wave [place]: 15 EKG Severity - ABNORMAL ECG - EKG Impression: SINUS RHYTHM EKG Impression: INCOMPLETE RIGHT BUNDLE BRANCH BLOCK Electronically Signed By: Yves Pickett 30-Jul-2017 15:15:42
[2017-07-30] MEDS: APIXABAN 5 MG TAB PO SCH (21:09)
[2017-07-31 05:08] LABS: PLATELET COUNT 223 10^3/uL (150-400)
[2017-07-31] MEDS: APIXABAN 5 MG TAB PO SCH (08:40)
[2017-07-31] MEDS ORDERED: PSYLLIUM HUSK PO SCH (09:00)
[2017-07-31] MEDS ORDERED: ASPIRIN EC 81 MG TAB PO SCH (09:00)
[2017-07-31] MEDS ORDERED: TAMSULOSIN HCL 0.4 MG CAP PO SCH (09:00)
[2017-07-31] MEDS ORDERED: METOPROLOL SUCCINATE XR 50 MG TAB PO SCH (09:00)
[2017-07-31] MEDS ORDERED: MULTIVITAMINS 1 EACH TAB PO SCH (09:00)
[2017-07-31] MEDS ORDERED: PANTOPRAZOLE SODIUM 40 MG TAB PO SCH (09:00)
[2017-07-31] MEDS ORDERED: NON-FORMULARY NEW DRUG (Esomeprazole Mag Trihydrate [Nexium] 40 MG) PO SCH (09:00)
[2017-07-31] MEDS ORDERED: ATORVASTATIN CALCIUM 20 MG TAB PO SCH (09:00)
[2017-07-31] MEDS ORDERED: CHOLECALCIFEROL VIT D3 1,000 UNITS TAB PO SCH (09:00)
--- NOTE | 2017-07-31 09:01 | CPEKG ---
Heart Rate: 59 RR Interval: 1017 P-R Interval: 192 QRSD Interval: 122 QT Interval: 452 QTC Interval: 448 P [place]: 51 QRS [place]: -7 T Wave [place]: -6 EKG Severity - ABNORMAL ECG - EKG Impression: SINUS RHYTHM EKG Impression: RIGHT BUNDLE BRANCH BLOCK Electronically Signed By: Yves Pickett 31-Jul-2017 16:27:32
--- NOTE | 2017-07-31 10:11 | ECHO ---
[email or web address] [address] Main: [phone] Fax: Transthoracic Echocardiogram Name: JESSICA BLISS MR#: [id number] Study Date: 07/31/2017 Study Time: 07:53 AM Date of : 1950 Age: 67 year(s) Height: 182.9 cm (72 in.) Weight: 108.86 kg (240 lb.) BSA: 2.3 m2 Gender: Male Examination: Echo Indication: Post EP Image Quality: Contrast: Requested by: Yves Pickett BP: 127 mmHg/72 mmHg Heart Rate: Rhythm: Normal sinus rhythm Indication: Post EP Procedure Staff Ripsaw Matcher: Viral Josue RDCS Reading Physician: Isauro Tan MD Requesting Provider: Conclusions: Normal size left ventricle. No LV hypertrophy. Normal global systolic LV function. EF is 69 %. No regional wall motion abnormality. Diastolic dysfunction is present. . Left Atrium: The mitral valve is normal in appearance and function. There is no mitral valve regurgitation. Trivial mitral valve regurgitation. The aortic valve is tri-leaflet. There is no aortic valve regurgitation. No previous Measurements: Chambers Valvular Assessment AV/MV Valvular Assessment TV/PV Normal Normal Normal Name Value Range Name Value Range Name Value Range Ao Mirna (MM): 3.5 cm (2.2 cm-3.7 AV Vmax: 0.99 m/s (1 m/s-1.7 cm) m/s) IVSd (2D): 0.8 cm (0.6 cm-1.1 AV maxP mmHg ( - ) cm) LVOT Vmax: 0.93 m/s (0.7 m/s-1.1 LVDd (2D): 5.0 cm (4.2 cm-5.9 m/s) cm) MV E Vmax: 0.92 m/s ( - ) LVDs (2D): 3.1 cm (2.1 cm-4 MV A Vmax: 0.99 m/s ( - ) cm) MV E/A: 0.93 ( - ) LVPWd (2D): 1.0 cm (0.6 cm-1 cm) LVEF (2D): 69 (>=54 %) Patient: JESSICA BLISS Study Date: 07/31/2017 Page 1 of 2 07:53 AM Continued Measurements: Chambers Valvular Assessment AV/MV Name Value Name Value LADs Lon.1 cm MV E' Septal: 0.07 m/s LA Area: 15.5 cm2 MV E/E' Septal: 13.10 LA Volume: 42 ml MV E/E' Lateral: 10.00 LA Volume Index: 18.3 ml/m2 Findings: Left Ventricle: Normal size left ventricle. No LV hypertrophy. Normal global systolic LV function. EF is 69 %. No regional wall motion abnormality. Diastolic dysfunction is present. . Right Ventricle: Normal size right ventricle. Normal RV function. Left Atrium: The left atrium is normal in size. Right Atrium: The right atrium is normal in size. Mitral Valve: The mitral valve is normal in appearance and function. There is no mitral valve regurgitation. Trivial mitral valve regurgitation. Aortic Valve: The aortic valve is normal in appearance and function. The aortic valve is tri-leaflet. There is no aortic valve regurgitation. Tricuspid Valve: The tricuspid valve is normal in appearance and function. Pulmonic Valve: The pulmonic valve is normal in appearance and function. Aorta: The aorta is normal. Pericardium: No pericardial effusion. (No Signature Object) Patient: JESSICA BLISS Study Date: 07/31/2017 Page 2 of 2 07:53 AM [id number]
--- NOTE | 2017-07-31 10:20 | ASMTCMCOM ---
CM Note CM Note Notes: 07/31/2017 Case Management Note Reviewed chart. Pt admitted for aflutter ablation. There are no PT or OT evals ordered at this time. There are no case management d/c needs identified d/t pt age, marital status and employment status. Pt independent in ADL's prior to admission. Case Management d/c poc: independent Case Management available if needs change. Date Signed: 07/31/2017 10:19 AM Electronically Signed By:Sherri Gaitan RN
[2017-07-31 11:06] VITALS: BP 100/59
--- NOTE | 2017-07-31 12:38 | ASDISCHSUM ---
Discharge Information Plan Status:Home with No Needs Medically Cleared to Leave:07/31/2017 Discharge Date:07/31/2017 12:20 PM CM D/C Disposition:Home, Routine, Self-Care ADT D/C Disposition:Home, Routine, Self-Care Projected Discharge Date:07/31/2017 12:20 PM Transportation at D/C: Discharge Delay Reason: Follow-Up Date:07/31/2017 12:20 PM Discharge Slot: Final Diagnosis: Placement Information Patient Contact Information Contact Name:FILEMON CHOUDHURY Relationship: Address:[address] [place] Alternate Phone: State/Zip Code:[place] [address] Email: Financial Information Financial Class:Medicare Primary Plan Desc:MEDICARE OUTPATIENT Primary Plan Number:[id number] Secondary Plan Desc:[employer]/MDR SUPPLEMENT Secondary Plan Number:[id number] Assessment Information LACE LACE Length of stay for Answers: 1 day current admission Acuity / Level of Answers: No Care: Did the patient have an inpatient admission? Comorbidities - select Answers: Other Notes: symptomatic all that apply aflutter, palpitations # of Emergency department Answers: 1-2 visits in the last 6 months Score: 3 Date Signed: 07/31/2017 12:37 PM Electronically Signed By:Sherri Gaitan RN [facility] CM Progress Note CM Note CM Note Notes: 07/31/2017 Case Management Note Reviewed chart. Pt admitted for aflutter ablation. There are no PT or OT evals ordered at this time. There are no case management d/c needs identified d/t pt age, marital status and employment status. Pt independent in ADL's prior to admission. Case Management d/c poc: independent Case Management available if needs change. Date Signed: 07/31/2017 10:19 AM Electronically Signed By:Sherri Gaitan RN Intervention Information Intervention Type:*CORTES-Signed Date of Service:07/31/2017 10:20 AM Patient Type:Observation Staff Member:Charleen Diaz Hours: Discipline: Severity: Comment:
--- NOTE | 2017-07-31 19:52 | GDS ---
[f rep st] DISCHARGE SUMMARY ADMIT DIAGNOSES: 1. Atrial flutter. 2. Planned electrophysiology study with possible ablation therapy. DISCHARGE DIAGNOSIS: Atrial flutter, status post successful ablation. HISTORY: This gentleman was seen in clinic with complaints of episodes of atrial flutter requiring e mergency room visits. He was seen 3 times in the emergency room. The first two, he converted on Car dizem and then verapamil. The third one required DC cardioversion. He has been taking Eliquis compl iantly. Dr. Pickett recommended further evaluation for risk stratification with a nuclear stress test, w hich he did have in clinic, finding no ischemic changes. It was then recommended to proceed with atr ial flutter ablation. He was in agreement with this plan and proceeded to have the ablation therapy on 07/30/2017, where Dr. Pickett was able to successfully isolate atrial flutter and perform ablation the rapy. He then was watched overnight in the PCU, where he has done well. He has been out ambulating. Groin sites are intact with no bleeding. His monitor shows a sinus rhythm with a rate of 76. At t his time, he currently is stable for discharge. MEDICATIONS: He will go home on aspirin 81 mg, Eliquis 5 mg twice daily, Lipitor 20 mg daily, Nexium 40 mg daily, multivitamin 1 daily, Flomax 0.4 mg daily, vitamin D3 1000 units daily. ALLERGIES: Tetanus and diphtheria toxoids. EXAM: VITAL SIGNS: On day of discharge, blood pressure 127/72, heart rate 70, temperature 36.9. EK G showed normal sinus rhythm. HEART: Rate regular. No murmurs, rubs, gallops. LUNGS: Sounds are clear to auscultation. No wheezes, rales, or rhonchi. EXTREMITIES: Bilateral groin sites are intac t with no bleeding, induration, or pain. Femoral pulses are intact. PROCEDURE NOTE: 07/30/2017, he was taken to the electrophysiology lab by Dr. Yves Pickett. Indication : Recurrent atrial flutter, prior ablation for left-sided, assess re-pathway, 9 years ago. Conclusi ons: 1. Counterclockwise atrial flutter. 2. Successful catheter-mediated ablation of cavotricuspid isthmus, achieving bidirectional conductio n block across the cavotricuspid isthmus. 3. No atrial arrhythmias inducible post ablation. 4. No conduction across left side accessory pathway ablated previously. 5. No apparent complications. Echocardiogram on 07/31/2017, showed: 1. Normal global systolic left ventricular function. 2. EF 69%. 3. No regional wall motion abnormalities. 4. No significant valvular abnormalities. EKG 07/31/2017, showed a sinus rhythm with a right bundle branch block, heart rate of 59 beats per mi nute. DISCHARGE PLAN: 1. He will be discharged with instructions for groin site precautions. 2. For 1 week, no heavy lifting, pushing, pulling greater than 10 pounds. No sitting in a tub of wa ter. 3. Should groin sites bleed, hold firm continuous pressure. Go to the emergency room if bleeding do es not stop. 4. Call [facility] for any questions or concerns. 5. Follow up with Dr. Pickett as scheduled in 4 weeks. At this time, he currently is stable for dischar Alo7. /[id number]/MODL
== END 2017-07-31 12:20 | disposition home or self-care (01) ==
LOC: FCATH 06:58 → F2W 11:00
PROVIDERS: ADMIT Internal Medicine Cardiovascular Disease; ATTEND Internal Medicine Cardiovascular Disease
DX: I48.92 Unspecified atrial flutter (principal)
CPT/HCPCS: 93005; 93306; 93312; 93613; 93621; 93653; C1731; C1732; C1766; J1100; J1644; J2250; J2405; J2704; J3010